=== PATIENT | female | born 1955 | race Caucasian/White ===

== ENCOUNTER → 2016-09-30 | Outpatient (CLI) | payer MEDICAID | LOC: FIMAGING 19:08 | PROVIDERS: ATTEND Family Medicine | DX: R10.30 Lower abdominal pain, unspecified (principal); R19.7 Diarrhea, unspecified; R53.83 Other fatigue; R53.1 Weakness; R93.3 Abnormal findings on diagnostic imaging of other parts of digestive tract; M53.3 Sacrococcygeal disorders, not elsewhere classified ==

== ENCOUNTER 2017-01-28 17:11 | Emergency (ER) | payer MEDICAID ==
[2017-01-28 17:23] VITALS: TEMP 98.2
--- NOTE | 2017-01-28 17:29 | EDPHY ---
H & P Time Seen by Provider: 01/28/17 17:28 HPI/ROS: Chief complaint. Arm fracture HPI. I signed up for this patient but the patient was seen by 1 of my partners and not myself ROS Constitutional. [no fever/chills, no weakness] Eyes. [no problems with vision] ENT. [no sore throat, no nasal drainage] Cardiovascular. [no chest pain] Respiratory. [no shortness of breath, no cough] Abdominal. [no abdominal pain, no nausea/vomiting, no diarrhea] . [no problems urinating] MS. [no calf pain/swelling, no neck/back pain, no joint pain] Skin. [no rash] Lymph. [no swollen glands] Neuro. [no headache, no dizziness, no difficulty walking or with speech] Smoking Status: Former smoker Constitutional: Initial Vital Signs Temperature (C) 36.8 C 01/28/17 17:19 Heart Rate 70 01/28/17 17:19 Respiratory Rate 18 01/28/17 17:19 Blood Pressure 121/62 H 01/28/17 17:19 O2 Sat (%) 98 01/28/17 17:19 O2 Delivery Mode Room Air Allergies/Adverse Reactions: Penicillins Allergy (Mild, Verified 01/28/17 17:23) Rash Sulfa (Sulfonamide Antibiotics) Allergy (Mild, Verified 01/28/17 17:23) Rash Home Medications: Medication Instructions Recorded ARMOUR THYROID 18 Apixaban [Eliquis] 10 mg PO BID 7 Days 01/28/17 Hydrocodone/APAP 5/325 [[place] 1 tab PO Q6H #6 tab 01/28/17 5/325 (*)] Medical Decision Making - Diagnostics Imaging Results: Imaging Impressions Wrist X-Ray 01/28/17 17:33 Impression: Comminuted intra-articular fractures of the distal radius and ulna, with positional deformities. Extremity Venous Study 01/28/17 18:21 Impression: Limited amount of venous thrombus in left brachial vein. No answer at telephone extension for Manuel Boyd at 1951 hours. - Data Points Laboratory Results: Laboratory Results 01/28/17 21:00 01/28/17 21:00 01/28/17 01/28/17 01/28/17 21:42 21:00 21:00 WBC RBC Hgb Hct MCV MCH MCHC RDW Plt Count MPV Neut % (Auto) Lymph % (Auto) [place] % (Auto) Eos % (Auto) Baso % (Auto) Nucleat RBC Rel Count Absolute Neuts (auto) Absolute Lymphs (auto) Absolute Monos (auto) Absolute Eos (auto) Absolute Basos (auto) Absolute Nucleated RBC Immature Gran % Immature Gran # PT 14.0 SEC SEC TNP (12.0-15.0) INR 1.09 TNP (0.83-1.16) APTT 28.8 SEC SEC TNP (23.0-38.0) Sodium 134 mEq/L mEq/L (134-144) Potassium 3.3 mEq/L L mEq/L (3.5-5.2) Chloride 99 mEq/L mEq/L (97-110) Carbon Dioxide 24 mEq/l mEq/l (22-31) Anion Gap 11 mEq/L mEq/L (8-16) BUN 13 mg/dL mg/dL (7-23) Creatinine 0.6 mg/dL mg/dL (0.6-1.0) Estimated GFR > 60 Glucose 76 mg/dL mg/dL (70-100) Calcium 9.2 mg/dL mg/dL (8.5-10.4) 01/28/17 21:00 WBC 4.85 10^3/uL 10^3/uL (3.80-9.50) RBC 3.83 10^6/uL L 10^6/uL (4.18-5.33) Hgb 11.3 g/dL L g/dL (12.6-16.3) Hct 34.8 % L % (38.0-47.0) MCV 90.9 fL fL (81.5-99.8) MCH 29.5 pg pg (27.9-34.1) MCHC 32.5 g/dL g/dL (32.4-36.7) RDW 13.2 % % (11.5-15.2) Plt Count 286 10^3/uL 10^3/uL (150-400) MPV 10.2 fL fL (8.7-11.7) Neut % (Auto) 51.3 % % (39.3-74.2) Lymph % (Auto) 28.5 % % (15.0-45.0) [place] % (Auto) 16.1 % H % (4.5-13.0) Eos % (Auto) 3.1 % % (0.6-7.6) Baso % (Auto) 0.6 % % (0.3-1.7) Nucleat RBC Rel Count 0.0 % % (0.0-0.2) Absolute Neuts (auto) 2.49 10^3/uL 10^3/uL (1.70-6.50) Absolute Lymphs (auto) 1.38 10^3/uL 10^3/uL (1.00-3.00) Absolute Monos (auto) 0.78 10^3/uL 10^3/uL (0.30-0.80) Absolute Eos (auto) 0.15 10^3/uL 10^3/uL (0.03-0.40) Absolute Basos (auto) 0.03 10^3/uL 10^3/uL (0.02-0.10) Absolute Nucleated RBC 0.00 10^3/uL 10^3/uL (0-0.01) Immature Gran % 0.4 % % (0.0-1.1) Immature Gran # 0.02 10^3/uL 10^3/uL (0.00-0.10) PT INR APTT Sodium Potassium Chloride Carbon Dioxide Anion Gap BUN Creatinine Estimated GFR Glucose Calcium Medications Given: Discontinued Medications Apixaban (Eliquis) 10 mg PO EDNOW ONE Stop: 01/28/17 21:21 Last Admin: 01/28/17 22:10 Dose: 10 mg Diphtheria/Tetanus/Acell Pertussis (Boostrix) 0.5 ml IM .ONCE ONE Stop: 01/28/17 18:24 Last Admin: 01/28/17 18:34 Dose: 0.5 ml Oxycodone/Acetaminophen (Percocet 5/325) 1 tab PO EDNOW ONE Stop: 01/28/17 20:48 Last Admin: 01/28/17 20:55 Dose: 1 tab Departure - Departure Disposition: Home, Routine, Self-Care Clinical Impression: Wrist fracture, left, DVT of upper extremity (deep vein thrombosis) Condition: Good Instructions: Wrist Fracture in Adults (ED), Deep Venous Thrombosis (ED), Splint Care (ED) Additional Instructions: Follow-up with both Orthopedics and your primary care doctor this week for recheck Please talk to you orthopedic doctor or primary care doctor about continuing anticoagulants medication. It is very important to note that when you finish the prescription you were given here you are not finished with therapy, you will likely need to be on anticoagulants medication for a number of months. Your primary care doctor or orthopedic doctor can provide you with this prescription. In regards to pain control see the following: Use ibuprofen 400 mg 3 times a day for the next 2-3 days for pain In addition You have been prescribed [[place]] for pain. [[place]] contains Tylenol, do not take extra Tylenol/acetaminophen/Apap with it. It is sedating. If symptoms worsen or new symptoms develop return to the emergency room for recheck Referrals: Iggy Gross MD [Medical Doctor] - As per Instructions Melida Cavazos MD [Primary Care Provider] - As per Instructions Prescriptions: Apixaban [Eliquis] 10 mg PO BID 7 Days Hydrocodone/APAP 5/325 [[place] 5/325 (*)] 1 tab PO Q6H #6 tab
[2017-01-28] MEDS ORDERED: TDAP ADULT 0.5 ML INJ (BOOSTRIX) IM ONE (18:23)
[2017-01-28] MEDS ORDERED: OXYCODONE/APAP 5/325 TAB PO ONE (20:47)
[2017-01-28 21:12] LABS: % IMMATURE GRANULYOCYTES 0.4 % (0.0-1.1); ABSOLUTE IMMATURE GRANULOCYTES 0.02 10^3/uL (0.00-0.10); ADD DIFF? NO; ADD MORPH? NO; ADD SCAN? YES; ATYPICAL LYMPHOCYTE FLAG 0 (0-99); FRAGMENT RBC FLAG 0 (0-99); HEMATOCRIT 34.8 % (38.0-47.0); HEMOGLOBIN 11.3 g/dL (12.6-16.3); LIPEMIA HEMOLYSIS FLAG 80 (0-99); MEAN CELL HEMOGLOBIN 29.5 pg (27.9-34.1); MEAN CELL HEMOGLOBIN CONCENTR. 32.5 g/dL (32.4-36.7); MEAN CELL VOLUME 90.9 fL (81.5-99.8); MEAN PLATELET VOLUME 10.2 fL (8.7-11.7); PLATELET CLUMPS FLAG 10 (0-99); PLATELET COUNT 286 10^3/uL (150-400); RED BLOOD CELL COUNT 3.83 10^6/uL (4.18-5.33); RED CELL DISTRIBUTION WIDTH 13.2 % (11.5-15.2)
--- NOTE | 2017-01-28 21:19 | EDPHY ---
H & P Stated Complaint: Fx L wrist/forearm last week;casted in [place];inc swelling Time Seen by Provider: 01/28/17 17:28 HPI/ROS: Chief complaint: Left wrist fracture, pain and swelling in the left arm History of present illness: This is a 61-year-old female who presents to the emergency department for a known left wrist fracture, now with pain and swelling in the left arm. Patient was in the [place] 4 days agowhen she fell while playing volleyball and struck her left arm against the ground. She sustained an injury to the wrist at that time. There was significant deformity and pain. She went to a local hospital where x-rays were obtained showing a fracture. Apparently she was reduced at the hospital in a full cast was placed on the arm. Since the placement of the cast he has been having increasing pain in the arm. She is now starting to develop her hand swelling and changing colors. She denies other associated signs or symptoms at this time including no report of trauma to other parts of the body. Review of systems: A 10 point review of systems was obtained and other than described above was negative - Personal History Current Tetanus Diphtheria and Acellular Pertussis (TDAP): Unsure Tetanus Vaccine Date: UNSURE - Medical/Surgical History Hx Asthma: No Hx Chronic Respiratory Disease: No Hx Diabetes: No Hx Cardiac Disease: No Hx Renal Disease: No Hx Cirrhosis: No Hx Alcoholism: No Hx HIV/AIDS: No Hx Splenectomy or Spleen Trauma: No Other PMH: Ankylosing spondylitis, microscopic colitis - Social History Smoking Status: Former smoker - Physical Exam Exam: General Appearance: Alert, nontoxic Eyes: Pupils equal and round no injection. Respiratory: Chest is nontender, lungs are clear to auscultation. Cardiac: regular rate and rhythm. Musculoskeletal: Patient's left upper extremity is in a poorly fitting cast. After the cast was cut off there is no obvious deformities noted. Given known fractures the arm is not ranged. Muscle compartments appear soft. Skin: Delayed capillary refill in left hand while cast is on. Normal capillary refill in the left hand after cast is removed. Radial pulses 2+. Multiple blisters that are intact noted to the left forearm. Constitutional: Initial Vital Signs Temperature (C) 36.8 C 01/28/17 17:19 Heart Rate 70 01/28/17 17:19 Respiratory Rate 18 01/28/17 17:19 Blood Pressure 121/62 H 01/28/17 17:19 O2 Sat (%) 98 01/28/17 17:19 O2 Delivery Mode Room Air Allergies/Adverse Reactions: Penicillins Allergy (Mild, Verified 01/28/17 17:23) Rash Sulfa (Sulfonamide Antibiotics) Allergy (Mild, Verified 01/28/17 17:23) Rash Home Medications: Medication Instructions Recorded ARMOUR THYROID 01/07/11 Apixaban [Eliquis] 10 mg PO BID 7 Days 01/28/17 Hydrocodone/APAP 5/325 [[place] 1 tab PO Q6H #6 tab 01/28/17 5/325 (*)] oxyCODONE/APAP 5/325 [Percocet 1 tab PO Q6H #10 tab 01/28/17 5/325 (*)] Medical Decision Making - Diagnostics Imaging Results: Imaging Impressions Wrist X-Ray 01/28/17 17:33 Impression: Comminuted intra-articular fractures of the distal radius and ulna, with positional deformities. Extremity Venous Study 01/28/17 18:21 Impression: Limited amount of venous thrombus in left brachial vein. No answer at telephone extension for Manuel Boyd at 1951 hours. Imaging: Discussed imaging studies w/ on call pharmacy technician Radiologist, I viewed and interpreted images myself Procedures: Procedure: Splint placement. A volar splint was applied. After application of the splint I returned and re- examined the patient. The splint was adequately immobilizing the joint and distal to the splint the patient's circulation and sensation was intact. ED Course/Re-evaluation: The patient is discussed with my secondary supervising physician Dr. Jake Jeong. Patient presents to the emergency department for evaluation of a left wrist fracture that was reduced and casted while she was in the [facility] 4 days ago. The cast appears to be too tight on presentation here and she has delayed capillary refill. After the cast is removed her left upper extremity is neurovascularly intact. Repeat x-rays do reveal significant fractures in the wrist. I have discussed the case with on- call orthopedics, Dr. Iggy Gross in person who has reviewed the x-rays. He recommends a volar splint. Further an ultrasound is recommended to rule out DVT which is obtained and does reveal a small DVT. Patient is started on Eliquis for her clot. Patient will be discharged home. She is asked to follow up with orthopedics this week for continued evaluation and care. We have discussed home care and pain management at length. Further she understands that after she completes the 7 day course of Eliquis I have provided she will need a new prescription for a maintenance dose and the length of time will be determined by her doctor or Orthopedics. She understands she should not miss a dose of anticoagulants while getting this prescription. She is given strict return precautions. She has voiced understanding and agreement with plan. Differential Diagnosis: Included but not limited to fracture, dislocation, compartment syndrome, blood clot - Data Points Laboratory Results: Laboratory Results 01/28/17 21:00 01/28/17 21:00 01/28/17 01/28/17 01/28/17 21:42 21:00 21:00 WBC RBC Hgb Hct MCV MCH MCHC RDW Plt Count MPV Neut % (Auto) Lymph % (Auto) [place] % (Auto) Eos % (Auto) Baso % (Auto) Nucleat RBC Rel Count Absolute Neuts (auto) Absolute Lymphs (auto) Absolute Monos (auto) Absolute Eos (auto) Absolute Basos (auto) Absolute Nucleated RBC Immature Gran % Immature Gran # PT 14.0 SEC SEC TNP (12.0-15.0) INR 1.09 TNP (0.83-1.16) APTT 28.8 SEC SEC TNP (23.0-38.0) Sodium 134 mEq/L mEq/L (134-144) Potassium 3.3 mEq/L L mEq/L (3.5-5.2) Chloride 99 mEq/L mEq/L (97-110) Carbon Dioxide 24 mEq/l mEq/l (22-31) Anion Gap 11 mEq/L mEq/L (8-16) BUN 13 mg/dL mg/dL (7-23) Creatinine 0.6 mg/dL mg/dL (0.6-1.0) Estimated GFR > 60 Glucose 76 mg/dL mg/dL (70-100) Calcium 9.2 mg/dL mg/dL (8.5-10.4) 01/28/17 21:00 WBC 4.85 10^3/uL 10^3/uL (3.80-9.50) RBC 3.83 10^6/uL L 10^6/uL (4.18-5.33) Hgb 11.3 g/dL L g/dL (12.6-16.3) Hct 34.8 % L % (38.0-47.0) MCV 90.9 fL fL (81.5-99.8) MCH 29.5 pg pg (27.9-34.1) MCHC 32.5 g/dL g/dL (32.4-36.7) RDW 13.2 % % (11.5-15.2) Plt Count 286 10^3/uL 10^3/uL (150-400) MPV 10.2 fL fL (8.7-11.7) Neut % (Auto) 51.3 % % (39.3-74.2) Lymph % (Auto) 28.5 % % (15.0-45.0) [place] % (Auto) 16.1 % H % (4.5-13.0) Eos % (Auto) 3.1 % % (0.6-7.6) Baso % (Auto) 0.6 % % (0.3-1.7) Nucleat RBC Rel Count 0.0 % % (0.0-0.2) Absolute Neuts (auto) 2.49 10^3/uL 10^3/uL (1.70-6.50) Absolute Lymphs (auto) 1.38 10^3/uL 10^3/uL (1.00-3.00) Absolute Monos (auto) 0.78 10^3/uL 10^3/uL (0.30-0.80) Absolute Eos (auto) 0.15 10^3/uL 10^3/uL (0.03-0.40) Absolute Basos (auto) 0.03 10^3/uL 10^3/uL (0.02-0.10) Absolute Nucleated RBC 0.00 10^3/uL 10^3/uL (0-0.01) Immature Gran % 0.4 % % (0.0-1.1) Immature Gran # 0.02 10^3/uL 10^3/uL (0.00-0.10) PT INR APTT Sodium Potassium Chloride Carbon Dioxide Anion Gap BUN Creatinine Estimated GFR Glucose Calcium Medications Given: Discontinued Medications Apixaban (Eliquis) 10 mg PO EDNOW ONE Stop: 01/28/17 21:21 Last Admin: 01/28/17 22:10 Dose: 10 mg Diphtheria/Tetanus/Acell Pertussis (Boostrix) 0.5 ml IM .ONCE ONE Stop: 01/28/17 18:24 Last Admin: 01/28/17 18:34 Dose: 0.5 ml Ibuprofen (Motrin) 600 mg PO EDNOW ONE Stop: 01/28/17 23:06 Last Admin: 01/28/17 23:08 Dose: 600 mg Oxycodone/Acetaminophen (Percocet 5/325) 1 tab PO EDNOW ONE Stop: 01/28/17 20:48 Last Admin: 01/28/17 20:55 Dose: 1 tab Oxycodone/Acetaminophen (Percocet 5/325mg Prepack#4) 1 btl TAKEHOME EDNOW ONE Stop: 01/28/17 22:38 Last Admin: 01/28/17 23:05 Dose: 1 btl Oxycodone/Acetaminophen (Percocet 5/325mg Prepack#4) 1 btl TAKEHOME EDNOW ONE Stop: 01/28/17 23:19 Last Admin: 01/28/17 23:23 Dose: 1 btl Departure - Departure Disposition: Home, Routine, Self-Care Clinical Impression: Wrist fracture, left Qualifiers: Encounter type: initial encounter Fracture type: closed Qualified Code(s): S62.102A - Fracture of unspecified carpal bone, left wrist, initial encounter for closed fracture DVT of upper extremity (deep vein thrombosis) Qualifiers: Affected thrombotic vein of extremity: brachial Chronicity: acute Laterality: left Qualified Code(s): I82.622 - Acute embolism and thrombosis of deep veins of left upper extremity Condition: Good Instructions: Wrist Fracture in Adults (ED), Deep Venous Thrombosis (ED), Splint Care (ED) Additional Instructions: Follow-up with both Orthopedics and your primary care doctor this week for recheck Please talk to you orthopedic doctor or primary care doctor about continuing anticoagulants medication. It is very important to note that when you finish the prescription you were given here you are not finished with therapy, you will likely need to be on anticoagulants medication for a number of months. Your primary care doctor or orthopedic doctor can provide you with this prescription. In regards to pain control see the following: Use ibuprofen 400 mg 3 times a day for the next 2-3 days for pain In addition You have been prescribed percocet for pain. Percocet contains Tylenol, do not take extra Tylenol/acetaminophen/Apap with it. It is sedating. If symptoms worsen or new symptoms develop return to the emergency room for recheck Referrals: Melida Cavazos MD [Primary Care Provider] - As per Instructions Iggy Gross MD [Medical Doctor] - As per Instructions Prescriptions: Apixaban [Eliquis] 10 mg PO BID 7 Days Hydrocodone/APAP 5/325 [[place] 5/325 (*)] 1 tab PO Q6H #6 tab oxyCODONE/APAP 5/325 [Percocet 5/325 (*)] 1 tab PO Q6H #10 tab
[2017-01-28] MEDS ORDERED: APIXABAN 5 MG TAB PO ONE (21:20)
[2017-01-28 21:21] LABS: LEFT SHIFT FLG 160 (0-99)
[2017-01-28 21:24] LABS: ANION GAP 11 mEq/L (8-16); CALCIUM 9.2 mg/dL (8.5-10.4); CARBON DIOXIDE 24 mEq/l (22-31); CHLORIDE 99 mEq/L (97-110); CREATININE 0.6 mg/dL (0.6-1.0); GLOMERULAR FILTRATION RATE > 60; GLUCOSE 76 mg/dL (70-100); POTASSIUM 3.3 mEq/L (3.5-5.2); SODIUM 134 mEq/L (134-144)
[2017-01-28 22:07] LABS: SCAN NEGATIVE
[2017-01-28 22:13] LABS: INR 1.09 (0.83-1.16)
[2017-01-28 22:14] LABS: APTT 28.8 SEC (23.0-38.0)
[2017-01-28] MEDS ORDERED: HYDROCOD/APAP 5/325 PREPACK#6 BTL TAKEHOME ONE (22:21)
[2017-01-28] MEDS ORDERED: OXYCODONE/APAP 5/325MG PREPACK#4 BTL TAKEHOME ONE ×2 (22:37→23:18)
[2017-01-28] MEDS ORDERED: IBUPROFEN 600 MG TAB PO ONE (23:05)
[2017-01-28 23:14] VITALS: BP 118/68; PULSE 78; RESP 16; O2SAT 95
== END 2017-01-28 23:14 | disposition home or self-care (01) ==
DX: S52.602A Unspecified fracture of lower end of left ulna, initial encounter for closed fracture (principal); I82.622 Acute embolism and thrombosis of deep veins of left upper extremity; S52.572A Other intraarticular fracture of lower end of left radius, initial encounter for closed fracture; Z23 Encounter for immunization; Z87.891 Personal history of nicotine dependence; W18.00XA Striking against unspecified object with subsequent fall, initial encounter; Y92.89 Other specified places as the place of occurrence of the external cause; Y93.68 Activity, volleyball (beach) (court)
CPT/HCPCS: A4565

== ENCOUNTER 2017-01-31 00:31 | Emergency (ER) | payer MEDICAID ==
[2017-01-31 00:39] VITALS: BP 128/66; PULSE 65; RESP 20; TEMP 97.5; O2SAT 18
--- NOTE | 2017-01-31 01:11 | EDPHY ---
H & P Stated Complaint: PAIN SWELING LEFT FX HAND,INCREAS LAST 30MIN, SURG TOMORROW, BLOOD CLOT ARM Time Seen by Provider: 01/31/17 00:40 HPI/ROS: Chief Complaint: Left arm pain and swelling HPI: 61-year-old woman who is presenting with left arm pain and swelling. Patient sustained a fracture to [place] Patient was seen here 3 days ago and diagnosed with a partial thrombus in her left brachial vein. She was started on Eliquis at that time. Patient was seen by Dr. Gross, orthopedics yesterday. She is scheduled for surgical repair later today. Dr. Gross did place a new splint on her left wrist. Patient states that she has had increasing pain and swelling in her wrist and hand. Has not had any increasing swelling of her proximal arm. She last took Eliquis yesterday morning in preparation for surgery today. No chest pain or shortness of breath. No palpitations. She did take Percocet earlier with no significant relief of her pain. ROS: 10 point Review of Systems is negative except as noted in the HPI. PMH: Social History: No smoking, no alcohol, no recreational drug use Family History: non-contributory Physical Exam: Gen: Awake, Alert, No Distress Ext: She has moderate edema of her hand with very mild forearm edema. There are is a blister of her radial wrist with an abrasion on her ulnar wrist. Forearm is completely soft. Sensations intact in the radial, median, and ulnar nerve distribution. She has no significant swelling proximal to her elbow. She has 2+ radial ulnar pulses. Capillary refills less than 2 seconds Skin: no rash Neuro: CN II-XII intact, Sensation grossly intact, Strength 5/5 in bilateral upper and lower extremities - Personal History Current Tetanus/Diphtheria Vaccine: Yes Tetanus Vaccine Date: 2016 - Medical/Surgical History Hx Asthma: No Hx Chronic Respiratory Disease: No Hx Diabetes: Yes Hx Cardiac Disease: No Hx Renal Disease: No Hx Cirrhosis: No Hx Alcoholism: No Hx HIV/AIDS: No Hx Splenectomy or Spleen Trauma: No Other PMH: Ankylosing spondylitis, microscopic colitis, FX LEFT HAND, BLOOD CLOT LEFT ARM - Social History Smoking Status: Former smoker Constitutional: Initial Vital Signs Temperature (C) 36.4 C 01/31/17 00:32 Heart Rate 65 01/31/17 00:32 Respiratory Rate 20 08/11/17 00:32 Blood Pressure 128/66 H 01/31/17 00:32 O2 Sat (%) 18 L 01/31/17 00:32 O2 Delivery Mode Room Air Allergies/Adverse Reactions: Penicillins Allergy (Mild, Verified 01/31/17 00:45) Rash Sulfa (Sulfonamide Antibiotics) Allergy (Mild, Verified 01/31/17 00:45) Rash Home Medications: Medication Instructions Recorded ARMOUR THYROID 01/07/11 Apixaban [Eliquis] 10 mg PO BID 7 Days 01/28/17 oxyCODONE/APAP 5/325 [Percocet 1 tab PO Q6H #10 tab 01/28/17 5/325 (*)] Acyclovir 01/30/17 Gabapentin 01/30/17 Herbals/Supplements -Info Only 01/30/17 Medical Decision Making ED Course/Re-evaluation: Patient presenting with wrist pain and hand swelling. She is completely neurologically intact. She has completely soft and benign compartments and no findings to suggest acute compartment syndrome. I have discussed with Dr. Charmaine Conroy, orthopedics. He agrees with plan to keep the patient splint, ice and elevate. Discharge with plan for follow-up with surgical repair with Dr. Gross later today. I have offered to keep the patient in the hospital for analgesia but she would prefer to go home and sleep in her own bed and return tomorrow for her surgical repair. I think this is appropriate. I have told her that she can return to the emergency department any time for pain is not controlled. Departure - Departure Disposition: Home, Routine, Self-Care Clinical Impression: Wrist fracture, left, DVT of upper extremity (deep vein thrombosis) Condition: Good Instructions: Wrist Fracture in Adults (ED) Additional Instructions: Follow up with Dr. Gross today for your wrist surgery. Return to the emergency department for worsening pain that is not controlled at home. Continue applying ice to her wrist and keep your wrist elevated above the level of your heart. Referrals: Iggy Gross MD [Medical Doctor] - As per Instructions
== END 2017-01-31 01:30 | disposition home or self-care (01) ==
DX: S62.102D Fracture of unspecified carpal bone, left wrist, subsequent encounter for fracture with routine healing (principal); I82.622 Acute embolism and thrombosis of deep veins of left upper extremity; E11.9 Type 2 diabetes mellitus without complications; Z87.891 Personal history of nicotine dependence; X58.XXXD Exposure to other specified factors, subsequent encounter

== ENCOUNTER 2017-01-31 13:18 | Inpatient (IN) | payer MEDICAID ==
[2017-01-31] MEDS ORDERED: BUPIVACAINE/EPI 0.5% 30 ML SDV ONE (13:28)
[2017-01-31] MEDS ORDERED: CLINDAMYCIN 900 MG/DEXTROSE 50 ML IV ONE (13:30)
[2017-01-31] MEDS ORDERED: LR 1,000 ML IV ONE (13:34)
[2017-01-31] MEDS ORDERED: LIDOCAINE 1% 2 ML INJ ID PRN (13:34)
[2017-01-31] MEDS ORDERED: LIDOCAINE 1% 2 ML INJ ONE (13:42)
--- NOTE | 2017-01-31 13:51 | GHP ---
[f rep st] PREOP HISTORY AND PHYSICAL Corrected report REASON FOR ADMISSION: 1. Displaced distal radius fracture, left. 2. Acute carpal tunnel syndrome, left. PLANNED PROCEDURE: Open reduction, internal fixation distal radius with acute carpal tunnel release. HISTORY OF PRESENT ILLNESS: The patient is a 61-year-old female, who was visiting the [facility], had a fall, sustained a displaced distal radius fracture. This was closed reduced and casted there. She returned on a flight. Cast was apparently too tight and she presented to the emergency room earlier this week. The cast was removed and she was found to have both blisters as well as a skin breakdown. She was placed in a splint. I evaluated her in the office and decision made to proceed with an open reduction, internal fixation of her distal radius and a carpal tunnel release. PAST MEDICAL HISTORY: Hypothyroidism and a DVT in the upper extremity, and she was started on Eliquis. This DVT was in the brachial vein. MEDICATIONS: [place] thyroid, Eliquis, hydrocodone. ALLERGIES: Penicillin gives a rash. Sulfa antibiotics also give a rash. SOCIAL HISTORY: Occasional alcohol. Does not smoke. REVIEW OF SYSTEMS: No shortness of breath or chest pain. Otherwise, review of systems unremarkable. PHYSICAL EXAM: HEENT: Normocephalic, atraumatic. Extraocular muscles intact. NECK: Supple. There is no lymphadenopathy. No JVD. CHEST: Clear to auscultation. CARDIOVASCULAR: Regular rate and rhythm. ABDOMEN: Soft, nontender, nondistended. No hepatosplenomegaly. EXTREMITY: Splint is removed. She has had skin breakdown on the right dorsum side of the radius and multiple fracture blisters on the ulnar side. She has quite a bit of swelling, decreased sensation in the ulnar nerve. She does have movement in those fingers. X-rays are reviewed, 4 views from [facility] show a comminuted, intra-articular distal radius fracture. ASSESSMENT: Comminuted distal radius fracture with cast application too tight with acute carpal tunnel syndrome. PLAN: We will proceed with an open carpal tunnel release, open reduction, internal fixation. Risks and benefits were discussed with the patient including permanent sensory changes due to the carpal tunnel injury, possible need for hardware removal in the future. She will need treatment for the DVT. We talked to the primary care clinic. We are going to have admitted her overnight. While in the hospital, we will get her started on Coumadin, decide if they want to bridge her with Lovenox and surgery will be at [facility] on Friday. /[id number]/MODL Add acc#, 01/31/17, santy SINGH
[2017-01-31] MEDS ORDERED: fentaNYL 100 MCG/2 ML INJ IVP ONE (13:53)
--- NOTE | 2017-01-31 13:53 | PDANEPAE ---
ANE History of Present Illness right wrist frx ANE Past Medical History - Cardiovascular History Hx Hypertension: No Hx Arrhythmias: No Hx Chest Pain: No Hx Coronary Artery / Peripheral Vascular Disease: No Hx CHF / Valvular Disease: No Hx Palpitations: No - Pulmonary History Hx COPD: No Hx Asthma/Reactive Airway Disease: No Hx Recent Upper Respiratory Infection: No Hx Oxygen in Use at Home: No Hx Sleep Apnea: No Sleep Apnea Screening Result - Last Documented: Negative - Neurologic History Hx Cerebrovascular Accident: No Hx Seizures: Yes Hx Dementia: No Neurologic History Comment: SEIZURES X3 - LAST SEIZURE 5 YEARS AGO - Endocrine History Hx Diabetes: Yes Endocrine History Comment: HYPOTHYROIDISM - Renal History Hx Renal Disorders: No - Liver History Hx Hepatic Disorders: No - Neurological & Psychiatric Hx Hx Neurological and Psychiatric Disorders: Yes Neurological / Psychiatric History Comment: ankylosing spondylitis causes hip and joint pain - Cancer History Hx Cancer: No - Congenital Disorder History Hx Congenital Disorders: No - GI History Hx Gastrointestinal Disorders: Yes Gastrointestinal History Comment: MICROCOLITIS - Other Health History Other Health History: L femoral hernia - Chronic Pain History Chronic Pain: Yes (JOINT PAIN) - Surgical History Prior Surgeries: bilat cataract surgery. BONE BIOPSY. JAW SURGERY. COLONOSCOPY. EGD ANE Review of Systems Review of systems is: negative - Exercise capacity Exercise capacity: >=4 METS METS (RN): 5 METS ANE Patient History - Allergies Allergies/Adverse Reactions: Penicillins Allergy (Mild, Verified 01/31/17 00:45) Rash Sulfa (Sulfonamide Antibiotics) Allergy (Mild, Verified 01/31/17 00:45) Rash - Home Medications Home Medications: ARMOUR THYROID 01/07/11 [Last Taken Unknown] Acyclovir 01/30/17 [Last Taken Unknown] Gabapentin 01/30/17 [Last Taken Unknown] Herbals/Supplements -Info Only 01/30/17 [Last Taken Unknown] - NPO status NPO Status: no food or drink >8 hours - Anes Hx Anes Hx: no prior problems - Smoking Hx Smoking Status: Former smoker - Alcohol Use Alcohol Use: None - Family Anes Hx Family Anes Hx: none Family Hx Anesthesia Complications: NONE ANE Labs/Vital Signs - Vital Signs Height: 158.75 cm Weight: 45.359 kg ANE Physical Exam - Airway Mallampati Score: Class 2 Mouth exam: normal dental/mouth exam - Pulmonary Pulmonary: no respiratory distress - Cardiovascular Cardiovascular: regular rate and rhythym - ASA Status ASA Status: III ANE Anesthesia Plan Anesthesia Plan: GA w LMA
[2017-01-31] MEDS ORDERED: MIDAZOLAM 2 MG/2 ML VIAL IVP ONE (13:54)
[2017-01-31] MEDS ORDERED: MIDAZOLAM 2 MG/2 ML VIAL ONE (13:56)
[2017-01-31] MEDS ORDERED: fentaNYL 100 MCG/2 ML INJ ONE ×3 (13:56→16:04)
--- NOTE | 2017-01-31 14:03 | PDHPUP ---
History & Physical Update H&P update statement: This history and physical update is based on an assessment of the patient which was completed after admission or registration (within 24 hours), but prior to the surgery/procedure.
[2017-01-31] MEDS ORDERED: PROPOFOL 200 MG/20 ML VIAL ONE (14:07)
[2017-01-31] MEDS ORDERED: LIDOCAINE 2% 5 ML SDV ONE (14:07)
[2017-01-31] MEDS ORDERED: DEXAMETHASONE 4 MG/ML VIAL ONE (14:30)
[2017-01-31] MEDS ORDERED: KETOROLAC 30 MG/1 ML SDV ONE ×2 (14:30→15:27)
[2017-01-31] MEDS ORDERED: ONDANSETRON 4 MG/2 ML VIAL ONE ×2 (14:30→15:27)
[2017-01-31] MEDS ORDERED: BUPIVACAINE 0.5% 30 ML SDV ONE (14:41)
[2017-01-31] MEDS ORDERED: HYDROmorphONE/DILAUDID 1 MG/ML SYR IVP PRN (15:31)
[2017-01-31] MEDS ORDERED: PROMETHAZINE HCL 25 MG/ML INJ IVP PRN (15:31)
[2017-01-31] MEDS ORDERED: ALBUTEROL 3 ML DEYVIAL IH PRN (15:31)
[2017-01-31] MEDS ORDERED: ONDANSETRON 4 MG/2 ML VIAL IVP PRN (15:31)
[2017-01-31] MEDS ORDERED: fentaNYL 100 MCG/2 ML INJ IVP PRN (15:31)
[2017-01-31] MEDS ORDERED: OXYCODONE/APAP 5/325 TAB PO PRN (15:31)
[2017-01-31] MEDS ORDERED: MEPERIDINE 25 MG/ML SYR IVP PRN (15:31)
[2017-01-31] MEDS ORDERED: NALOXONE HCL 0.4 MG/ML INJ IVP PRN (15:31)
[2017-01-31] MEDS ORDERED: LACTULOSE 20 GM/30 ML UDCUP PO PRN (16:01)
[2017-01-31] MEDS ORDERED: BISACODYL 10 MG SUPP PR PRN (16:01)
[2017-01-31] MEDS ORDERED: POLYETHYLENE GLYCOL 3350 17 GM PKT PO PRN (16:01)
[2017-01-31] MEDS ORDERED: MAGNESIUM HYDROXIDE 30 ML UDCUP PO PRN (16:01)
--- NOTE | 2017-01-31 16:01 | POSTOPPROG ---
Post Op Note Date of Operation: 01/31/17 Surgeon: Iggy Gross Anesthesiologist: josias Anesthesia: GET(General Endotracheal) Pre-op Diagnosis: Displaced intraarticular distal radius fracture, acute carpal tunnel left, Post-op Diagnosis: same Procedure: ORIF Left distal radius fracture, carpal tunnel release, PCP ulna Findings: displaced radius fx, hematoma in carpal tunnel Inf/Abcess present in the surg proc area at time of surgery?: No Complications: none
[2017-01-31] MEDS ORDERED: oxyCODONE IR 5 MG TAB PO PRN (16:02)
[2017-01-31] MEDS ORDERED: TEMAZEPAM 15 MG CAP PO PRN (16:02)
[2017-01-31] MEDS: fentaNYL 100 MCG/2 ML INJ IVP PRN ×2 (16:07→16:15)
[2017-01-31] MEDS ORDERED: LR 1,000 ML IV SCH (16:30)
[2017-01-31] MEDS ORDERED: HYDROmorphONE/DILAUDID 1 MG/ML SYR ONE ×2 (16:30→16:49)
[2017-01-31] MEDS: HYDROmorphONE/DILAUDID 1 MG/ML SYR IVP PRN ×5 (16:31→20:49)
[2017-01-31] MEDS ORDERED: oxyCODONE IR 5 MG TAB ONE (17:10)
--- NOTE | 2017-01-31 18:30 | POSTANESTH ---
Post Anesthetic Evaluation Cardiovascular Status: Normal, Stable Respiratory Status: Normal, Stable Level of Consciousness/Mental Status: Can Participate in Eval Pain Control: Adequate, Prn Tx Ordered Nausea/Vomiting Control: Adequate, Prn Tx Ordered Complications Possibly Related to Anesthesia: None Noted
--- NOTE | 2017-01-31 19:47 | GOP ---
[f rep st] OPERATIVE REPORT DATE OF OPERATION: 01/31/2017 SURGEON: Iggy Gross MD ANESTHESIA: General. ANESTHESIOLOGIST: Dr. Nicole. PREOPERATIVE DIAGNOSIS: 1. Displaced intra-articular distal radius fracture. 2. Displaced ulnar fracture. 3. Acute carpal tunnel syndrome. 4. Brachial vein deep vein thrombosis. POSTOPERATIVE DIAGNOSIS: 1. Displaced intra-articular distal radius fracture. 2. Displaced ulnar fracture. 3. Acute carpal tunnel syndrome. 4. Brachial vein deep vein thrombosis. PROCEDURE PERFORMED: 1. Open reduction and internal fixation, intra-articular distal radius fracture. 2. Closed reduction, percutaneous pinning, distal ulnar fracture. 3. Carpal tunnel release. FINDINGS: INDICATIONS: The patient is a 61-year-old female, who fell while she was visiting the [facility] and underwent a closed reduction and casting there. She flew back on the plane. Cast was too tight and she presented to the emergency department. They removed the cast, which showed multiple fracture blisters and breakdown of her skin over the radial side of her wrist. She was re-splinted, evaluated by me in my office, and I decided to proceed with an open reduction and internal fixation of her fracture and a carpal tunnel release. DESCRIPTION OF PROCEDURE: After appropriate informed consent was obtained, the patient was taken to the operating room and placed supine on the operating table. Time-out was performed. Patient was identified. Correct site was identified and matched with the radiographs available in the room. Davina newell received 900 mg clindamycin due to her penicillin allergy. Following induction of general endotra cheal anesthesia, left upper extremity was prepped and draped in the usual sterile fashion. I was a ble to exsanguinate the limb, inflate the tourniquet to 250 mmHg. I made a standard volar incision centered over the flexor carpi radialis tendon, being careful to av oid the areas of skin that were blistered or were broken down. Soft tissues were carefully dissecte d. The muscle was elevated off the bone. Median nerve was protected toward the ulnar side of the w rist, and the radial artery was retracted and protected toward the radial side of the wrist. The fr acture was in multiple pieces. It was pieced together. Held in place with K-wires and a volar plat e. I confirmed its position with AP and lateral fluoroscopic images, then placed 1 shaft screw foll owed by multiple distal locking screws and 2 more locking shaft screws. Final imaging was obtained, which showed satisfactory reduction of the fracture. I then extended the incision in a Z-type fashion into the and up over the carpal tunnel. Carpal lig ament was incised. The median nerve had a large hematoma right at the wrist crease where the cast h er wrist flexed down. I irrigated the hematoma out. The nerve was in continuity, although there was a large bruise along its sheath. I irrigated the wound again. Closed the deep layers of the distal radial incision with 2-0 Vicryl. The skin over the carpal tunnel release was just closed loosely w ith 3-0 nylon and the remainder of the incision was closed with 3-0 nylon. I then placed two 1.8 mm K-wires under fluoroscopic visualization from the ulna into the radius stabilizing the fracture. P ins were bent and cut. We cleaned the blisters as well as the broken-down skin, covered it with a n onadherent dressing and a volar splint was loosely applied to the wrist. I instilled 20 mL of 0.5% Marcaine plain prior to the application of the splint. The patient was awakened from anesthesia, taken to the recovery room in satisfactory condition. The re were no immediate intraoperative complications. TOTAL TOURNIQUET TIME: 62 minutes at 250 mmHg. COMPLICATIONS: None. DRAINS: None. IMPLANTS USED: 1. Synthes volar plate. 2. Two smooth K-wires 1.8 mm. /[id number]/MODL
[2017-01-31] MEDS ORDERED: LORazepam 2 MG/ML INJ IVP ONE (20:25)
[2017-01-31] MEDS ORDERED: LORazepam 2 MG/ML INJ IVP PRN (20:25)
[2017-01-31] MEDS: oxyCODONE IR 5 MG TAB PO PRN (22:26)
[2017-01-31] MEDS: SENNOSIDES/DOCUSATE SODIUM TAB PO SCH (22:28)
--- NOTE | 2017-01-31 22:38 | GCON ---
[f rep st] CONSULTATION MEDICINE CONSULTATION DATE OF CONSULTATION: 01/31/2017 Medicine consultation at the request of Dr. Iggy Gross for medical evaluation and management of u pper extremity deep vein thrombosis. HISTORY: This is a 61-year-old female who suffered a fractured wrist while on vacation in the [facility]. Apparently, she was placed in a cast at that time with a plan to have followup here in the [place]. By the time she arrived here, there had been issues developing due to the nessa t being placed too tightly. She developed an acute carpal tunnel syndrome, and had significant frac ture associated blisters. At the time of my evaluation, the patient is seen in the postoperative pe riod. She underwent an ORIF for displaced distal radius fracture, and a closed reduction of a displ aced ulnar fracture, as well as a carpal tunnel release procedure. She notes that her hand, fingers , and arm are increasingly swollen and painful since surgery. She states she is quite concerned abo ut the condition of her hand and arm. She does not believe that she is having adequate pain control . She denies any other associated complaints such as chest pain, shortness of breath, nausea, vomit ing. PAST MEDICAL HISTORY: Ankylosing spondylitis, collagenous colitis, iron deficiency anemia, hypothyr oidism, recently diagnosed left upper extremity brachial vein DVT. PAST SURGICAL HISTORY: No significant history. FAMILY HISTORY: This was reviewed and noncontributory. SOCIAL HISTORY: The patient is a nonsmoker. She drinks alcohol occasionally. Denies drug use. REVIEW OF SYSTEMS: A 10-point review of systems obtained, negative except as per HPI. MEDICATIONS: 1. Percocet. 2. [place] Thyroid. 3. Multivitamin. 4. Eliquis. ALLERGIES: Penicillin and sulfa. PHYSICAL EXAMINATION: VITAL SIGNS: BP 125/75, heart rate 64, respiratory rate 16, O2 saturation 98 % on 2 L, temperature 37.2. GENERAL APPEARANCE: Well-developed/well-nourished female. She is in m oderate distress. EYES: Anicteric. HENT: Oropharynx clear. CARDIOVASCULAR: Regular rate and rh ythm, no MRG. PULMONARY: CTA to anterior exam. ABDOMEN: Soft, nontender, nondistended. EXTREMIT IES: Left upper extremity is in a soft cast. Her fingers are noted to be edematous, warm with sign ificant tenderness to palpation and limited range of motion. Otherwise, warm, dry and well perfused . NEURO/PSYCH: Oriented, appropriate, pleasant. CLINICAL DATA: Labs reviewed. Significant for hematocrit of 34.8 on the 8th. Potassium was 3.3 on the 8th. There have not been labs repeated since then. Wrist x-ray from 01/28/2017 personally reviewed and interpreted shows comminuted fracture of the dis benito radius and ulna. Extremity ultrasound on the showing a limited amount of venous thrombus in the left brachial vei n. All other veins were patent and normally compressible. ASSESSMENT AND PLAN: This is a 61-year-old female with recent distal radius and ulnar fracture, as well as recently diagnosed brachial vein deep vein thrombosis. 1. Displaced distal radial and ulnar fractures. Again, the patient is status post open reduction i nternal fixation of the distal radius, and closed reduction and fixation of the ulnar fracture. At the time of my evaluation, she is concerned that she is having more pain and swelling then in the pr eoperative period. At this point, I will increase her pain medications, as she does not feel she is having any relief from the morphine, and switch her over to Dilaudid. I have also asked nursing to notify Orthopedics to be sure that they are aware. She does appear to be neurovascularly intact, a nd at this point I am suspecting that this is likely normal postoperative swelling. However, the tatum odom is quite anxious about this. 2. Brachial vein deep vein thrombosis. This is a very short segment DVT with very little amount of thrombus. Anticoagulation was held in the preoperative period, though she had been on Eliquis prio r to that. At this point, I will hold anticoagulation for tonight pending ortho re-evaluation just to be certain that there is nothing further surgically that needs to be done. We will resume Eliqui s in the morning. She should only require a very short course of treatment given the small amount o f clot in this situation. 3. Acute carpal tunnel syndrome. She is status post carpal tunnel release. Again, as above, she i s having significant swelling and pain, and unclear if this is related to the same. 4. Hypothyroid. We will continue her [place] Thyroid. DISPOSITION: Observation status. She will likely need less than 48 hours stay for evaluation and m anagement of above. The patient is new to my care. Old records reviewed, summarized as per HPI and past medical history. Care plan reviewed with Orthopedics. Medicine will continue to follow while in house. Thank you for this consultation. /[id number]/MODL
[2017-02-01] MEDS: oxyCODONE IR 5 MG TAB PO PRN ×6 (03:12→23:35)
[2017-02-01] MEDS: HYDROmorphONE/DILAUDID 1 MG/ML SYR IVP PRN ×6 (03:26→19:23)
[2017-02-01 05:07] LABS: % IMMATURE GRANULYOCYTES 0.4 % (0.0-1.1); ABSOLUTE IMMATURE GRANULOCYTES 0.03 10^3/uL (0.00-0.10); ADD DIFF? NO; ADD MORPH? NO; ADD SCAN? NO; ATYPICAL LYMPHOCYTE FLAG 60 (0-99); FRAGMENT RBC FLAG 0 (0-99); HEMATOCRIT 30.1 % (38.0-47.0); HEMOGLOBIN 9.9 g/dL (12.6-16.3); LEFT SHIFT FLG 40 (0-99); LIPEMIA HEMOLYSIS FLAG 80 (0-99); MEAN CELL HEMOGLOBIN 29.5 pg (27.9-34.1); MEAN CELL HEMOGLOBIN CONCENTR. 32.9 g/dL (32.4-36.7); MEAN CELL VOLUME 89.6 fL (81.5-99.8); MEAN PLATELET VOLUME 10.2 fL (8.7-11.7); PLATELET CLUMPS FLAG 0 (0-99); PLATELET COUNT 291 10^3/uL (150-400); RED BLOOD CELL COUNT 3.36 10^6/uL (4.18-5.33); RED CELL DISTRIBUTION WIDTH 13.1 % (11.5-15.2)
[2017-02-01 05:20] LABS: ANION GAP 9 mEq/L (8-16); CALCIUM 8.5 mg/dL (8.5-10.4); CARBON DIOXIDE 26 mEq/l (22-31); CHLORIDE 100 mEq/L (97-110); CREATININE 0.5 mg/dL (0.6-1.0); GLOMERULAR FILTRATION RATE > 60; GLUCOSE 81 mg/dL (70-100); POTASSIUM 3.6 mEq/L (3.5-5.2); SODIUM 135 mEq/L (134-144)
[2017-02-01] MEDS: ACETAMINOPHEN 325 MG TAB PO PRN (05:38)
[2017-02-01] MEDS: THYROID 60 MG TAB PO SCH (07:42)
--- NOTE | 2017-02-01 09:26 | SOAPPROG ---
SOAP Progress Note Assessment/Plan: Assessment: POD#1 ORIF radius/PCP ulna, CTR Plan: 02/01/17 09:23 poor pain control will add oxycontin 10 mg BID plus Ibuprofen will keep splint off for now Long d/w Candi numbness is to be expected due to median nerve injury and will likely persist for months cont ice/elation Appreciate DR Childers assistance with DVT treatment Subjective: poor pain control o/n splint and wrap removed o/n with some improvement numbness slightly better this am Objective: dressing with small amount blood FA compartment soft moving fingers decreased LT sensation in median nerve distribution Vital Signs Temp Pulse Resp BP Pulse Ox 36.5 C 67 16 123/72 H 97 02/01/17 07:28 02/01/17 07:28 02/01/17 07:28 02/01/17 07:28 02/01/17 07:28 Laboratory Results 02/01/17 04:47 02/01/17 04:47 01/31/17 02/01/17 02/02/17 05:59 05:59 05:59 Intake Total 1999 Output Total 1405 Balance 595 ICD10 Worksheet Patient Problems: Problems Problem Status Onset DVT of upper extremity (deep vein thrombosis) Acute Wrist fracture, left Acute
[2017-02-01] MEDS: SENNOSIDES/DOCUSATE SODIUM TAB PO SCH ×2 (09:59→19:27)
[2017-02-01] MEDS: APIXABAN 5 MG TAB PO SCH ×2 (09:59→19:27)
[2017-02-01] MEDS: IBUPROFEN 600 MG TAB PO PRN ×2 (10:02→15:48)
--- NOTE | 2017-02-01 15:32 | HOSPPROG ---
Hospitalist Progress Note Assessment/Plan: 61 yo F with recent radial and ulnar fracture as well as recent dx DVT and acute carpal tunnel syndrome # left radial and ulnar fracture: s/p surgical intervention per Dr. Gross, has been having significant issues with pain since surgery- started on oxycontin and continues to require prn oxycodone, prn IV dilaudid and notes that her pain still remains poorly controlled. Seems to have significant nerve component as next. # acute carpal tunnel syndrome: continues to have persistent numbness and burning pain in the past operative setting s/p carpal tunnel release--per ortho this is expected to continue likely for months. Started on gabapentin and will uptitrate as needed/tolerated. # LUE DVT: very small volume, has been on eliquis [employer] and will continue for 3 months # anxiety: prn ativan, likely contributing to her ability to manage her pain # hypothyroid: continue armour thyroid # IP status Subjective: no significant overnight events, patient notes that her pain is currently better controlled than it was yesterday, she still has numbness and burning pain and notes that intermittently her pain is severe Objective: Vital Signs Temp Pulse Resp BP Pulse Ox 36.4 C 63 14 114/71 95 02/01/17 11:46 02/01/17 11:46 02/01/17 11:46 02/01/17 11:46 02/01/17 11:46 Laboratory Results 02/01/17 04:47 02/01/17 04:47 01/31/17 02/01/17 02/02/17 05:59 05:59 05:59 Intake Total 2000 Output Total 1405 700 Balance 595 -700 awake alert nad anicteric op clear rrr no mrg cta b soft nt nd lue with dressing on, fingers edematous/erythematous improved rom warm dry well perfused anxious but oriented appropriate ICD10 Worksheet Patient Problems: Problems Problem Status Onset Wrist fracture, left Acute DVT of upper extremity (deep vein thrombosis) Acute
[2017-02-01] MEDS: GABAPENTIN 100 MG CAP PO SCH ×2 (15:48→23:29)
[2017-02-02] MEDS: oxyCODONE IR 5 MG TAB PO PRN (03:03)
[2017-02-02] MEDS: HYDROmorphONE/DILAUDID 1 MG/ML SYR IVP PRN ×2 (03:04→06:01)
[2017-02-02] MEDS: THYROID 60 MG TAB PO SCH (05:42)
[2017-02-02] MEDS: IBUPROFEN 600 MG TAB PO PRN ×3 (05:44→19:52)
--- NOTE | 2017-02-02 09:08 | SOAPPROG ---
JOHN Progress Note Assessment/Plan: Assessment: POD#1 ORIF radius/PCP ulna, CTR Plan: 02/01/17 09:23 poor pain control will add oxycontin 10 mg BID plus Ibuprofen will keep splint off for now Long d/w Candi numbness is to be expected due to median nerve injury and will likely persist for months cont ice/elation Appreciate DR Childers assistance with DVT treatment 02/02/17 09:06 Will D/C IV pain meds increase oxycodone IR to 5-15 q 3H Cont Ice/elevation Titrate gabapentin up as tolerated Poss DC Friday Subjective: Still with poor pain control but improved since yesterday Objective: Dressing intact moving fingers decreased sensation LT median nerve distribution Vital Signs Temp Pulse Resp BP Pulse Ox 36.4 C 76 16 137/70 H 91 L 02/02/17 07:53 02/02/17 07:53 02/02/17 07:53 02/02/17 07:53 02/02/17 07:53 Laboratory Results 02/01/17 04:47 02/01/17 04:47 02/01/17 02/02/17 02/03/17 05:59 05:59 05:59 Intake Total 1999 500 Output Total 1405 700 Balance 595 -200 ICD10 Worksheet Patient Problems: Problems Problem Status Onset DVT of upper extremity (deep vein thrombosis) Acute Wrist fracture, left Acute
[2017-02-02] MEDS: SENNOSIDES/DOCUSATE SODIUM TAB PO SCH ×2 (09:22→21:14)
[2017-02-02] MEDS: APIXABAN 5 MG TAB PO SCH ×2 (09:22→21:12)
[2017-02-02] MEDS: GABAPENTIN 100 MG CAP PO SCH ×3 (09:23→22:16)
[2017-02-02] MEDS: oxyCODONE IR 15 MG TAB PO PRN ×5 (10:21→22:58)
[2017-02-02] MEDS: ACETAMINOPHEN 325 MG TAB PO PRN (16:50)
[2017-02-03] MEDS: IBUPROFEN 600 MG TAB PO PRN ×2 (01:54→14:38)
[2017-02-03] MEDS: oxyCODONE IR 15 MG TAB PO PRN ×5 (01:55→14:38)
[2017-02-03] MEDS: THYROID 60 MG TAB PO SCH (03:42)
[2017-02-03] MEDS: GABAPENTIN 100 MG CAP PO SCH ×2 (08:19→17:03)
[2017-02-03] MEDS: APIXABAN 5 MG TAB PO SCH ×2 (08:19→18:15)
[2017-02-03] MEDS: SENNOSIDES/DOCUSATE SODIUM TAB PO SCH (08:21)
--- NOTE | 2017-02-03 09:20 | SOAPPROG ---
SOAP Progress Note Assessment/Plan: Assessment: POD#1 ORIF radius/PCP ulna, CTR Plan: 02/01/17 09:23 poor pain control will add oxycontin 10 mg BID plus Ibuprofen will keep splint off for now Long d/w Candi numbness is to be expected due to median nerve injury and will likely persist for months cont ice/elation Appreciate DR Childers assistance with DVT treatment 02/02/17 09:06 Will D/C IV pain meds increase oxycodone IR to 5-15 q 3H Cont Ice/elevation Titrate gabapentin up as tolerated Poss DC Friday02/03/17 09:18 Better pain control SNF placement OT consult for adl's self care F/U [place] Friday for dressing change PCP at [facility] for DVT treatment at [place] Subjective: Pain better controlled last 24 hours doesn't think she can manage at home Objective: dressing rewrapped and splinted this am moving fingers better less swelling Vital Signs Temp Pulse Resp BP Pulse Ox 36.9 C 70 18 106/61 94 02/03/17 08:00 02/03/17 08:00 02/03/17 08:00 02/03/17 08:00 02/03/17 08:00 Laboratory Results 02/01/17 04:47 02/01/17 04:47 02/02/17 02/03/17 02/04/17 05:59 05:59 05:59 Intake Total 500 2350 Output Total 700 1100 Balance -200 1250 ICD10 Worksheet Patient Problems: Problems Problem Status Onset DVT of upper extremity (deep vein thrombosis) Acute Wrist fracture, left Acute
--- NOTE | 2017-02-03 14:51 | HOSPPROG ---
Hospitalist Progress Note Assessment/Plan: 61 yo F with recent radial and ulnar fracture as well as recent dx DVT and acute carpal tunnel syndrome # left radial and ulnar fracture: s/p surgical intervention per Dr. Gross, has been having significant issues with pain since surgery- pain is out of proportion to what would be expected and patient very reluctant to go home. This injury is in her non dominant hand and she has not limitations in completing her ADLs. Declines snf placement. # acute carpal tunnel syndrome: continues to have persistent numbness and burning pain in the past operative setting s/p carpal tunnel release--per ortho this is expected to continue likely for months. Started on gabapentin and will uptitrate as needed/tolerated. # LUE DVT: very small volume, has been on eliquis [employer] and will continue for 3 months # anxiety: prn ativan, likely contributing to her ability to manage her pain # hypothyroid: continue armour thyroid # IP status, likely dc home today Subjective: patient very anxious and upset, does not want to leave the hospital for several more days, states that she "needs a break" and has been able to sleep here finally after having many rough weeks emotionally at home, she is walking/performing ADLs without issues Objective: Vital Signs Temp Pulse Resp BP Pulse Ox 36.9 C 70 18 106/61 94 02/03/17 08:00 02/03/17 08:00 02/03/17 08:00 02/03/17 08:00 02/03/17 08:00 Laboratory Results 02/01/17 04:47 02/01/17 04:47 02/02/17 02/03/17 02/04/17 05:59 05:59 05:59 Intake Total 500 2350 Output Total 700 1100 Balance -200 1250 anxious awake and alert anicteric lue in splint, continued mild edema to fingers, improved rom ICD10 Worksheet Patient Problems: Problems Problem Status Onset Wrist fracture, left Acute DVT of upper extremity (deep vein thrombosis) Acute
[2017-02-03] MEDS ORDERED: morphINE SR 15 MG TAB PO ONE (15:30)
[2017-02-03 16:02] VITALS: BP 109/69; PULSE 79; RESP 16; TEMP 98.6; O2SAT 90
== END 2017-02-03 18:24 | disposition home or self-care (01) | DRG 511 ==
LOC: F3N 13:18 → INTOOBSV 13:18 → EDSTATUS 14:30 → F3N 17:29 → OBSVTOIN 02-01 09:35 → F3N 02-01 16:55
PROVIDERS: ADMIT Orthopaedic Surgery; ATTEND Orthopaedic Surgery
PROC: 0PSL35Z Reposition Left Ulna with External Fixation Device, Percutaneous Approach (ICD-10-PCS; principal; 2017-01-31 14:30)
PROC: 01N50ZZ Release Median Nerve, Open Approach (ICD-10-PCS; principal; 2017-01-31 14:30)
PROC: 0PSJ04Z Reposition Left Radius with Internal Fixation Device, Open Approach (ICD-10-PCS; principal; 2017-01-31 14:30)
DX: S52.572A Other intraarticular fracture of lower end of left radius, initial encounter for closed fracture (principal); S52.602A Unspecified fracture of lower end of left ulna, initial encounter for closed fracture; S64.12XA Injury of median nerve at wrist and hand level of left arm, initial encounter; I82.622 Acute embolism and thrombosis of deep veins of left upper extremity; E03.9 Hypothyroidism, unspecified; M45.9 Ankylosing spondylitis of unspecified sites in spine; D50.9 Iron deficiency anemia, unspecified; F41.1 Generalized anxiety disorder; W01.0XXA Fall on same level from slipping, tripping and stumbling without subsequent striking against object, initial encounter; Y93.68 Activity, volleyball (beach) (court); Y92.832 Beach as the place of occurrence of the external cause; Z88.0 Allergy status to penicillin; Z88.2 Allergy status to sulfonamides; Z87.19 Personal history of other diseases of the digestive system
CPT/HCPCS: 97161-GP; 97165-GO; C1713; C1769; G0378; J1100; J1170; J1885; J2060; J2250; J2405; J2704; J3010

== ENCOUNTER → 2017-02-21 | Outpatient (CLI) | payer MEDICAID | LOC: FIMAGING 13:47 | PROVIDERS: ATTEND Orthopaedic Surgery | DX: S52.502D Unspecified fracture of the lower end of left radius, subsequent encounter for closed fracture with routine healing (principal); S52.602D Unspecified fracture of lower end of left ulna, subsequent encounter for closed fracture with routine healing ==

== ENCOUNTER → 2017-02-26 | Outpatient (CLI) | payer MEDICAID | LOC: FIMAGING 14:04 | PROVIDERS: ATTEND Orthopaedic Surgery | DX: S62.92XD Unspecified fracture of left hand, subsequent encounter for fracture with routine healing (principal) ==

== ENCOUNTER → 2017-03-12 | Outpatient (CLI) | payer MEDICAID | LOC: FIMAGING 18:25 | PROVIDERS: ATTEND Orthopaedic Surgery | DX: Z48.89 Encounter for other specified surgical aftercare (principal); S52.502D Unspecified fracture of the lower end of left radius, subsequent encounter for closed fracture with routine healing; S52.602D Unspecified fracture of lower end of left ulna, subsequent encounter for closed fracture with routine healing ==

== ENCOUNTER → 2017-04-10 | Outpatient (CLI) | payer MEDICAID | LOC: BMCIMAGING 15:29 | PROVIDERS: ATTEND Family Medicine | DX: Z12.31 Encounter for screening mammogram for malignant neoplasm of breast (principal); S52.592D Other fractures of lower end of left radius, subsequent encounter for closed fracture with routine healing; S52.692D Other fracture of lower end of left ulna, subsequent encounter for closed fracture with routine healing | CPT/HCPCS: G0202 ==

== ENCOUNTER 2017-04-29 06:31 | Inpatient (IN) | payer MEDICAID ==
--- NOTE | 2017-04-23 17:25 | GHP ---
[f rep st] PREOP HISTORY AND PHYSICAL DATE OF ADMISSION: 04/29/2017 CHIEF COMPLAINT: Follow up femoral hernia. HISTORY OF PRESENT ILLNESS: The patient is a 62-year-old female, last seen in September 2016 for lower a bdominal pain, increased diarrhea from her baseline, accompanied by nausea. She has a history of ank ylosing spondylitis and microscopic colitis with a previously diagnosed left femoral hernia. On phys ical exam, her left femoral hernia was soft and reducible and did not seem to be the cause of her abd ominal pain. She had an abdominal x-ray around that time that showed some constipation. There is so me question as to whether her symptoms were secondary to her colitis. Still, she does have a femoral hernia and requests repair to avoid any kind of urgent or emergent surgery. Risks and options have been fully discussed, including, but not limited to, bleeding, infection, injury to nerve, bladder in jury, bowel injury, recurrent hernia, open surgery and other problems, and she requests to proceed. PAST MEDICAL HISTORY: Includes anemia of chronic illness, ankylosing spondylitis, microscopic coliti s, fibromyalgia, hypothyroidism, idiopathic neuropathy, heart palpitations, patellofemoral syndrome, radiculopathy, iridocyclitis. PAST SURGICAL HISTORY: Includes colonoscopy, EGD, and jaw surgery. MEDICATIONS: [place] Thyroid, acyclovir, gabapentin, Jublia, multivitamin, oxycodone, tretinoin cream . ALLERGIES: Penicillin and sulfa. FAMILY MEDICAL HISTORY: Diabetes. SOCIAL HISTORY: Patient works in sales. She is a former tobacco smoker. She enjoys swimming. EXAM: GENERAL: Reveals an alert female, in no acute distress, thin but well-nourished. HEENT: Nor mocephalic, atraumatic. No jaundice. Mucous membranes moist. CHEST: Clear to auscultation bilater ally. CARDIAC: Regular rate and rhythm. ABDOMEN: Soft, with mild lower abdominal tenderness, no g uarding or rebound, no scars, and a small reducible left femoral hernia. EXTREMITIES: Warm and dry. IMPRESSION: This is a 62-year-old female with a symptomatic, reducible left femoral hernia. PLAN: Plan is to proceed with laparoscopic left femoral hernia repair with mesh, possible bilateral femoral hernia repair. Again, risks and options have been discussed, and she requests to proceed. /[id number]/MODL
[2017-04-29] MEDS ORDERED: LR 1,000 ML IV ONE (06:45)
[2017-04-29] MEDS ORDERED: LIDOCAINE 1% 2 ML INJ ID PRN (06:45)
[2017-04-29] MEDS ORDERED: CLINDAMYCIN 600 MG/DEXTROSE 50 ML IV ONE (07:00)
[2017-04-29] MEDS ORDERED: BUPIVACAINE 0.5% 30 ML SDV ONE (07:20)
--- NOTE | 2017-04-29 07:39 | PDANEPAE ---
ANE History of Present Illness Patient presents for femoral hernia repair ANE Past Medical History - Cardiovascular History Hx Hypertension: No Hx Arrhythmias: No Hx Chest Pain: No Hx Coronary Artery / Peripheral Vascular Disease: No Hx CHF / Valvular Disease: No Hx Palpitations: No - Pulmonary History Hx COPD: No Hx Asthma/Reactive Airway Disease: No Hx Recent Upper Respiratory Infection: No Hx Oxygen in Use at Home: No Hx Sleep Apnea: No Sleep Apnea Screening Result - Last Documented: Negative - Neurologic History Hx Cerebrovascular Accident: No Hx Seizures: Yes Hx Dementia: No Neurologic History Comment: SEIZURES X3 - LAST SEIZURE 5 YEARS AGO - Endocrine History Hx Diabetes: Yes Endocrine History Comment: HYPOTHYROIDISM - Renal History Hx Renal Disorders: No - Liver History Hx Hepatic Disorders: No - Neurological & Psychiatric Hx Hx Neurological and Psychiatric Disorders: Yes Neurological / Psychiatric History Comment: ankylosing spondylitis causes hip and joint pain - Cancer History Hx Cancer: No - Congenital Disorder History Hx Congenital Disorders: No - GI History Hx Gastrointestinal Disorders: Yes Gastrointestinal History Comment: MICROCOLITIS - Other Health History Other Health History: wears glasses - Chronic Pain History Chronic Pain: Yes (JOINT PAIN) - Surgical History Prior Surgeries: 01/31/17 left wrist orif with [place]. bilat cataract surgery. BONE BIOPSY. JAW SURGERY. COLONOSCOPY. EGD ANE Review of Systems Review of Systems: - Exercise capacity METS (RN): 5 METS ANE Patient History - Allergies Allergies/Adverse Reactions: Penicillins Allergy (Mild, Verified 04/28/17 13:31) Rash Sulfa (Sulfonamide Antibiotics) Allergy (Mild, Verified 04/28/17 13:31) Rash - Home Medications Home medications: home medication list seen and reviewed Home Medications: Thyroid,Pork [[place] Thyroid] 01/07/11 [Last Taken 04/29/17 05:00] Herbals/Supplements -Info Only 01/30/17 [Last Taken 04/27/17] Warfarin Sodium 04/28/17 [Last Taken 04/25/17] oxyCODONE IR [Oxycodone Ir (*)] 04/28/17 [Last Taken 04/29/17 06:00] - NPO status NPO Status: no food or drink >8 hours NPO Since - Liquids (Date): 04/29/17 NPO Since - Liquids (Time): 00:30 NPO Since - Solids (Date): 11/07/17 NPO Since - Solids (Time): 00:30 - Anes Hx Anes Hx: no prior problems - Smoking Hx Smoking Status: Former smoker - Family Anes Hx Family Hx Anesthesia Complications: NONE ANE Labs/Vital Signs - Vital Signs Blood Pressure: 102/60 Heart Rate: 66 Respiratory Rate: 16 O2 Sat (%): 93 Height: 158.75 cm Weight: 45.359 kg ANE Physical Exam - Airway Neck exam: FROM Mallampati Score: Class 2 Mouth exam: small mouth opening - Pulmonary Pulmonary: no respiratory distress - Cardiovascular Cardiovascular: regular rate and rhythym - ASA Status ASA Status: III ANE Anesthesia Plan Anesthesia Plan: GA w LMA (RBA discussed)
[2017-04-29] MEDS ORDERED: fentaNYL 100 MCG/2 ML INJ ONE ×2 (07:42→09:21)
[2017-04-29] MEDS ORDERED: PROPOFOL 200 MG/20 ML VIAL ONE (07:43)
[2017-04-29] MEDS ORDERED: LIDOCAINE 2% 5 ML SDV ONE (07:43)
[2017-04-29 07:50] LABS: % IMMATURE GRANULYOCYTES 0.3 % (0.0-1.1); ABSOLUTE IMMATURE GRANULOCYTES 0.02 10^3/uL (0.00-0.10); ADD DIFF? NO; ADD MORPH? NO; ADD SCAN? NO; ATYPICAL LYMPHOCYTE FLAG 10 (0-99); FRAGMENT RBC FLAG 0 (0-99); HEMATOCRIT 33.9 % (38.0-47.0); HEMOGLOBIN 11.4 g/dL (12.6-16.3); LEFT SHIFT FLG 0 (0-99); LIPEMIA HEMOLYSIS FLAG 80 (0-99); MEAN CELL HEMOGLOBIN 29.7 pg (27.9-34.1); MEAN CELL HEMOGLOBIN CONCENTR. 33.6 g/dL (32.4-36.7); MEAN CELL VOLUME 88.3 fL (81.5-99.8); MEAN PLATELET VOLUME 9.6 fL (8.7-11.7); PLATELET CLUMPS FLAG 0 (0-99); PLATELET COUNT 399 10^3/uL (150-400); RED BLOOD CELL COUNT 3.84 10^6/uL (4.18-5.33); RED CELL DISTRIBUTION WIDTH 13.2 % (11.5-15.2)
[2017-04-29 07:59] LABS: INR 1.16 (0.83-1.16); PROTIME(PATIENT) 14.8 SEC (12.0-15.0)
[2017-04-29 08:00] LABS: APTT 32.2 SEC (23.0-38.0)
--- NOTE | 2017-04-29 08:08 | PDHPUP ---
History & Physical Update H&P update statement: This history and physical update is based on an assessment of the patient which was completed after admission or registration (within 24 hours), but prior to the surgery/procedure. H&P update: H&P reviewed & patient examined, no change in patient's condition since H&P completed
[2017-04-29] MEDS ORDERED: ROCURONIUM 50 MG/5 ML VIAL ONE ×2 (08:36→08:40)
[2017-04-29] MEDS ORDERED: ONDANSETRON 4 MG/2 ML VIAL ONE (08:42)
[2017-04-29] MEDS ORDERED: DEXAMETHASONE 4 MG/ML VIAL ONE (08:42)
[2017-04-29] MEDS ORDERED: ONDANSETRON 4 MG/2 ML VIAL IVP PRN ×2 (09:04→09:32)
[2017-04-29] MEDS ORDERED: OXYCODONE/APAP 5/325 TAB PO PRN (09:04)
[2017-04-29] MEDS ORDERED: LR 500 ML IV PRN (09:04)
[2017-04-29] MEDS ORDERED: NALOXONE HCL 0.4 MG/ML INJ IVP PRN (09:04)
--- NOTE | 2017-04-29 09:19 | POSTANESTH ---
Post Anesthetic Evaluation Cardiovascular Status: Similar to Pre-Op Cond Respiratory Status: Similar to Pre-op Cond. Level of Consciousness/Mental Status: Can Participate in Eval Pain Control: Adequate, Prn Tx Ordered Nausea/Vomiting Control: Adequate, Prn Tx Ordered Complications Possibly Related to Anesthesia: None Noted
[2017-04-29] MEDS: fentaNYL 100 MCG/2 ML INJ IVP PRN ×2 (09:23→09:37)
[2017-04-29] MEDS ORDERED: HYDROmorphONE/DILAUDID 1 MG/ML INJ IVP PRN (09:32)
--- NOTE | 2017-04-29 09:35 | POSTOPPROG ---
Post Op Note Date of Operation: 04/29/17 Surgeon: Rick Trammell Digital Photographic Printer: Idalia Finley Anesthesiologist: Morris Modi Anesthesia: GET(General Endotracheal) Pre-op Diagnosis: L femoral hernia Post-op Diagnosis: same Procedure: lap femoral hernia repair c mesh, exploration of R femoral area Findings: left femoral hernia, no right sided hernias Inf/Abcess present in the surg proc area at time of surgery?: No EBL: Minimal Complications: none Specimen(s): none
[2017-04-29] MEDS ORDERED: HYDROmorphONE/DILAUDID 1 MG/ML INJ ONE (09:36)
[2017-04-29] MEDS ORDERED: OXYCODONE/APAP 5/325 TAB ONE (09:43)
[2017-04-29] MEDS: OXYCODONE/APAP 5/325 TAB PO PRN ×3 (13:51→21:35)
[2017-04-29] MEDS: DOCUSATE SODIUM 100 MG CAP PO SCH (20:58)
[2017-04-29] MEDS: SIMETHICONE 80 MG TAB CHEW PO PRN (21:35)
[2017-04-30] MEDS: HYDROmorphone HCL/NS/PF 0.4 MG/2 ML SYR IVP PRN ×3 (00:36→08:40)
[2017-04-30] MEDS: SIMETHICONE 80 MG TAB CHEW PO PRN (00:39)
[2017-04-30] MEDS: OXYCODONE/APAP 5/325 TAB PO PRN ×6 (01:30→22:32)
[2017-04-30] MEDS: DOCUSATE SODIUM 100 MG CAP PO SCH ×3 (08:32→22:33)
[2017-04-30] MEDS: THYROID 60 MG TAB PO SCH (08:32)
[2017-04-30] MEDS: MULTIVITAMINS 1 EACH TAB PO SCH (08:32)
[2017-04-30] MEDS ORDERED: BISACODYL 10 MG SUPP PR ONE (09:20)
[2017-04-30] MEDS ORDERED: POLYETHYLENE GLYCOL 3350 17 GM PKT PO ONE (09:20)
--- NOTE | 2017-04-30 10:00 | SOAPPROG ---
SOAP Progress Note Assessment/Plan: Assessment/Plan: 62 Y F s/p lap femoral hernia repair, POD#1. C/o bloating and pain overnight. Exam within acceptable limits today. Seen with Dr. Trammell. Suspect ileus and constipation. Add miralax and suppository this am. Recent RUE DVT p wrist surgery. Some confusion about her date to stop coumadin. Will get repeat RUE US to evaulate for resolution of clot for decision making. Ppx lovenox today. Dispo: pending. possibly later today versus in am. patient lives alone. Rx percocet in chart. S: had a really bad night. c/o bloating. in more pain than expected. O: up oob. walking around in room. alert, nad mmm, no jaundice ctab rrr abd softly bloated. no guarding. inc cdi. hernia repair intact. +BS. 04/30/17 09:55 Objective: Vital Signs Temp Pulse Resp BP Pulse Ox 37.2 C 62 15 96/58 L 94 04/30/17 08:00 04/30/17 08:00 04/30/17 08:00 04/30/17 08:00 04/30/17 00:00 Laboratory Results 04/29/17 07:40 04/29/17 04/30/17 05/01/17 05:59 05:59 05:59 Intake Total 1720 Output Total 2 Balance 1718 PT 14.8 SEC (12.0-15.0) 04/29/17 07:40 INR 1.16 (0.83-1.16) 04/29/17 07:40 ICD10 Worksheet Patient Problems: Problems Problem Status Onset DVT of upper extremity (deep vein thrombosis) Acute Wrist fracture, left Acute
--- NOTE | 2017-04-30 10:56 | ASMTCMCOM ---
CM Note CM Note Notes: Patient is POD #1 laparoscopic L femoral hernia repair with Dr Trammell. She is c/o of a bad night last night, lots of bloating. Per surgery report, symptoms caused by likely ileus/constipation. Patient is independent at baseline and should not have any discharge needs. CM available if needs change. Date Signed: 04/30/2017 10:55 AM Electronically Signed By:Karuna Reed RN
[2017-04-30] MEDS ORDERED: KETOROLAC 15 MG/1 ML SDV IVP SCH (12:00)
[2017-04-30] MEDS: ASPIRIN 325 MG TAB PO SCH (14:32)
[2017-04-30] MEDS: ENOXAPARIN 30 MG/0.3 ML SYR SC SCH (14:35)
[2017-04-30] MEDS: IBUPROFEN 600 MG TAB PO PRN (17:55)
[2017-05-01] MEDS: OXYCODONE/APAP 5/325 TAB PO PRN ×4 (02:39→14:53)
[2017-05-01] MEDS: THYROID 60 MG TAB PO SCH (06:53)
[2017-05-01 07:34] VITALS: RESP 16
[2017-05-01] MEDS: MULTIVITAMINS 1 EACH TAB PO SCH (08:34)
[2017-05-01] MEDS: ENOXAPARIN 30 MG/0.3 ML SYR SC SCH (08:34)
[2017-05-01] MEDS: DOCUSATE SODIUM 100 MG CAP PO SCH (08:35)
[2017-05-01] MEDS: ASPIRIN 325 MG TAB PO SCH (08:35)
[2017-05-01] MEDS: IBUPROFEN 600 MG TAB PO PRN ×2 (08:35→14:54)
--- NOTE | 2017-05-01 09:36 | SOAPPROG ---
SOAP Progress Note Assessment/Plan: Assessment: SP LAP FEMORAL HERNIA, MULTIPLE COMPLAINTS BUT NO EVIDENCE OF RECURRENCE/ DISTENTION DOWN AFTER LARGE BM ABD SOFT, WOUNDS OK, AFEBRILE ALSO LEFT SUBMAX GLAND ENLARGEMENT Plan:POSSIBLY HOME TODAY 05/01/17 09:22 Objective: Vital Signs Temp Pulse Resp BP Pulse Ox 37.0 C 60 16 116/77 92 05/01/17 07:33 05/01/17 07:33 05/01/17 07:33 05/01/17 07:33 05/01/17 07:33 Laboratory Results 04/29/17 07:40 04/30/17 05/01/17 05/02/17 05:59 05:59 05:59 Intake Total 1720 1200 Output Total 2 Balance 1718 1200 PT 14.8 SEC (12.0-15.0) 04/29/17 07:40 INR 1.16 (0.83-1.16) 04/29/17 07:40 ICD10 Worksheet Patient Problems: Problems Problem Status Onset DVT of upper extremity (deep vein thrombosis) Acute Wrist fracture, left Acute
[2017-05-01 15:40] VITALS: BP 104/63; PULSE 66; TEMP 97.5; O2SAT 95
--- NOTE | 2017-05-02 10:16 | ASDISCHSUM ---
Discharge Information Plan Status:Home with No Needs Medically Cleared to Leave: Discharge Date:05/01/2017 05:35 PM CM D/C Disposition:Home, Routine, Self-Care ADT D/C Disposition:Home, Routine, Self-Care Projected Discharge Date:05/01/2017 05:35 PM Transportation at D/C:Friend Discharge Delay Reason: Follow-Up Date:05/01/2017 05:35 PM Discharge Slot: Final Diagnosis: Placement Information Patient Contact Information Contact Name:JOHNNY Relationship:Friend Address: Work Phone: City: [facility] Phone: State/Zip Code:[place] Email: Financial Information Financial Class: Primary Plan Desc:MEDICA[employer] FIRST [place] Primary Plan Number:[id number] Secondary Plan Desc: Secondary Plan Number: Assessment Information [facility] CM Progress Note CM Note CM Note Notes: Patient is POD #1 laparoscopic L femoral hernia repair with Dr Trammell. She is c/o of a bad night last night, lots of bloating. Per surgery report, symptoms caused by likely ileus/constipation. Patient is independent at baseline and should not have any discharge needs. CM available if needs change. Date Signed: 04/30/2017 10:55 AM Electronically Signed By:Karuna Reed RN Intervention Information
--- NOTE | 2017-05-12 14:41 | GOP ---
[f rep st] OPERATIVE REPORT DATE OF OPERATION: 04/29/2017 SURGEON: Rick Trammell MD ACCOUNT DEVELOPMENT SPECIALIST: EVERT Guillaume PREOPERATIVE DIAGNOSIS: Left femoral hernia. POSTOPERATIVE DIAGNOSIS: Left femoral hernia. PROCEDURE PERFORMED: Laparoscopic left femoral hernia repair and exploration of the right. FINDINGS: The patient was found to have a small left femoral hernia. There was no evidence of indire ct or direct herniations, and no evidence of hernia on the right side. DESCRIPTION OF PROCEDURE: The patient was taken to the operating room where she received satisfactor y general endotracheal anesthesia, placed in supine position, prepped and draped in usual sterile fas hion. Infraumbilical incision was made. Dissection was carried down to the rectus sheath, which was i ncised. A subfascial tunnel was developed in the preperitoneal space, which was dissected free with a balloon dissector. That was replaced with a CO2 insufflation trocar. Two other trocars were placed i n the midline under direct vision. Chuy's ligament was exposed bilaterally. The cords were mobilize d bilaterally. The peritoneum was dissected off the cord structures. There were no indirect sacs. On the left, a femoral hernia was freed up, its contents reduced. A Covidien polyester mesh patch was in troduced and placed over the inguinal floor and secured in place with AbsorbaTack, securing it to Investment Officer per's ligament, the lacunar ligament, anterior abdominal wall, lateral abdominal wall outside the int ernal ring. No evidence of herniation was seen on the right side. Trocars removed under direct vision . Pneumopreperitoneum was released. Trocar sites were closed with 0 Vicryl for the fascia, and 4-0 Mo nocryl subcuticular stitch for the skin. All layers infiltrated with 0.5% Marcaine. The estimated blood loss was negligible. She was taken to the recovery room in good condition. /[id number]/MODL
== END 2017-05-01 17:35 | disposition home or self-care (01) | DRG 352 ==
LOC: F3N 06:31 → F3E 09:57 → OBSVTOIN 04-30 16:25
PROVIDERS: ADMIT Surgery; ATTEND Surgery
PROC: 0YU84JZ Supplement Left Femoral Region with Synthetic Substitute, Percutaneous Endoscopic Approach (ICD-10-PCS; principal; 2017-04-30)
DX: K41.90 Unilateral femoral hernia, without obstruction or gangrene, not specified as recurrent (principal); E03.9 Hypothyroidism, unspecified; K52.9 Noninfective gastroenteritis and colitis, unspecified; E78.5 Hyperlipidemia, unspecified; D63.8 Anemia in other chronic diseases classified elsewhere; Z87.891 Personal history of nicotine dependence; Z86.718 Personal history of other venous thrombosis and embolism
CPT/HCPCS: C1727; C1781; J1100; J1170; J1650; J1885; J2405; J2704; J3010

== ENCOUNTER → 2017-05-06 | Outpatient (CLI) | payer MEDICAID | LOC: FIMAGING 18:08 | PROVIDERS: ATTEND Orthopaedic Surgery | DX: S52.592D Other fractures of lower end of left radius, subsequent encounter for closed fracture with routine healing (principal); S52.692D Other fracture of lower end of left ulna, subsequent encounter for closed fracture with routine healing ==

== ENCOUNTER → 2017-07-09 | Outpatient (CLI) | payer MEDICAID | LOC: BMCIMAGING 15:53 | PROVIDERS: ATTEND Orthopaedic Surgery | DX: S52.592D Other fractures of lower end of left radius, subsequent encounter for closed fracture with routine healing (principal) ==

== ENCOUNTER 2017-07-14 09:25 | Observation (INO) | payer MEDICAID ==
--- NOTE | 2017-07-13 15:24 | GHP ---
[f rep st] PREOP HISTORY AND PHYSICAL DATE OF ADMISSION: 07/14/2017 PREOPERATIVE DIAGNOSIS: Painful retained hardware in left wrist. PLANNED PROCEDURE: Hardware removal left distal radius with flexor tendon tenolysis and scar tissue debridement. PRIOR MEDICAL HISTORY: None. PRIOR SURGICAL HISTORY: Wrist open reduction internal fixation, with acute carpal tunnel release. H istory of DVT. MEDICATIONS: Oxycodone. ALLERGIES: Penicillin. SOCIAL HISTORY: She is self-employed, does not smoke, denied alcohol use. REVIEW OF SYSTEMS: No shortness of breath, chest pain. Otherwise, review of systems unremarkable. PHYSICAL EXAMINATION: GENERAL: A healthy-appearing 62-year-old female. HEENT: Normocephalic, atra umatic. Extraocular muscles intact. NECK: Supple. There is no lymphadenopathy. No JVD. CHEST: Clear to auscultation. CARDIOVASCULAR: Regular rate and rhythm. ABDOMEN: Soft, nontender, nondist ended. EXTREMITIES: Left wrist has a well-healed incision. There is minimal swelling. She only has about 40 degrees of wrist extension, 60 degrees of wrist flexion. Sensation in both the median nerv e to light touch is intact, as well as the radial nerve is intact. 2+ radial pulse. IMAGING STUDIES: X-rays: 3 views of the wrist taken a week ago at [facility] shows sa tisfactory healing of the fracture of both the radius and the ulna. ASSESSMENT: Painful retained hardware with limited range of motion postoperatively from open reducti on internal fixation wrist. PLAN: I recommend removing the volar wrist plate with a flexor tendon tenolysis and debridement of s car tissue try to improve her range of motion and improve her pain. She did have some problems with postoperative pain management after the original surgery, so I do think she will need to at least spe nd overnight in the hospital for pain management. Preoperative paperwork was completed. We will plan on surgery on Friday at the hospital. /[id number]/MODL
[~2017-07-14 09:25] MED LIST: CLINDAMYCIN 900 MG/DEXTROSE 50 ML IV ONE; LIDOCAINE 1% 2 ML INJ ID PRN; LR 1,000 ML IV ONE
[2017-07-14] MEDS ORDERED: CLINDAMYCIN 900 MG/DEXTROSE 50 ML IV ONE (09:30)
--- NOTE | 2017-07-14 09:43 | PDANEPAE ---
ANE History of Present Illness left upper extremity hardware removal ANE Past Medical History - Cardiovascular History Hx Hypertension: No Hx Arrhythmias: No Hx Chest Pain: No Hx Coronary Artery / Peripheral Vascular Disease: No Hx CHF / Valvular Disease: No Hx Palpitations: No - Pulmonary History Hx COPD: No Hx Asthma/Reactive Airway Disease: No Hx Recent Upper Respiratory Infection: No Hx Oxygen in Use at Home: No Hx Sleep Apnea: No Sleep Apnea Screening Result - Last Documented: Negative - Neurologic History Hx Cerebrovascular Accident: No Hx Seizures: Yes Hx Dementia: No Neurologic History Comment: SEIZURES X3 - LAST SEIZURE 5 YEARS AGO - Endocrine History Hx Diabetes: Yes Hypothyroid: Yes Hyperthyroid: No Obesity: no Endocrine History Comment: HYPOTHYROIDISM - Renal History Hx Renal Disorders: No - Liver History Hx Hepatic Disorders: No - Neurological & Psychiatric Hx Hx Neurological and Psychiatric Disorders: Yes Neurological / Psychiatric History Comment: ankylosing spondylitis causes hip and joint pain - Cancer History Hx Cancer: No - Congenital Disorder History Hx Congenital Disorders: No - GI History Hx Gastrointestinal Disorders: Yes Gastrointestinal History Comment: MICROCOLITIS - Other Health History Other Health History: L femoral hernia - Chronic Pain History Chronic Pain: Yes (JOINT PAIN) - Surgical History Prior Surgeries: hand l. hernia. bilat cataract surgery. BONE BIOPSY. JAW SURGERY. COLONOSCOPY. EGD ANE Review of Systems Review of systems is: negative Review of Systems: - Exercise capacity METS (RN): 5 METS ANE Patient History - Allergies Allergies/Adverse Reactions: Penicillins Allergy (Mild, Verified 04/28/17 13:31) Rash Sulfa (Sulfonamide Antibiotics) Allergy (Mild, Verified 04/28/17 13:31) Rash - Home Medications Home medications: home medication list seen and reviewed Home Medications: Herbals/Supplements -Info Only 1 each PO DAILY 01/30/17 [Last Taken 01/30/17] Multivitamins [Multivitamin (*)] 1 each PO DAILY 04/29/17 [Last Taken Unknown] Thyroid [[place] Thyroid 60 MG (*)] 30 mg PO DAILY 04/29/17 [Last Taken 04/29/17 05:00] oxyCODONE IR [Oxycodone Ir (*)] 10 mg PO Q6HRS PRN 04/29/17 [Last Taken 06:00] Acyclovir 06/30/17 [Last Taken Unknown] Gabapentin 06/30/17 [Last Taken Unknown] - Smoking Hx Smoking Status: Former smoker - Family Anes Hx Family Hx Anesthesia Complications: NONE ANE Labs/Vital Signs - Vital Signs Height: 157.48 cm Weight: 45.359 kg ANE Physical Exam - Airway Neck exam: FROM Mallampati Score: Class 2 Mouth exam: small mouth opening - Pulmonary Pulmonary: no respiratory distress - Cardiovascular Cardiovascular: regular rate and rhythym - ASA Status ASA Status: III ANE Anesthesia Plan Anesthesia Plan: GA w LMA
[2017-07-14] MEDS ORDERED: fentaNYL 100 MCG/2 ML INJ ONE ×2 (09:45→11:25)
[2017-07-14] MEDS ORDERED: PROPOFOL 200 MG/20 ML VIAL ONE (09:45)
[2017-07-14] MEDS ORDERED: LIDOCAINE 2% 5 ML SDV ONE (09:46)
[2017-07-14] MEDS ORDERED: BUPIVACAINE/EPI 0.5% 30 ML SDV ONE (09:54)
[2017-07-14] MEDS ORDERED: MIDAZOLAM 2 MG/2 ML VIAL IVP ONE (10:03)
[2017-07-14] MEDS ORDERED: MIDAZOLAM 2 MG/2 ML VIAL ONE (10:03)
[2017-07-14] MEDS ORDERED: KETAMINE 200 MG/20 ML VIAL ONE (10:07)
[2017-07-14] MEDS ORDERED: BUPIVACAINE 0.5% 30 ML SDV ONE (10:28)
[2017-07-14] MEDS ORDERED: ONDANSETRON 4 MG/2 ML VIAL ONE (10:47)
[2017-07-14] MEDS ORDERED: DEXAMETHASONE 4 MG/ML VIAL ONE (10:47)
[2017-07-14] MEDS ORDERED: HYDROCODONE/APAP 5/325 TAB PO PRN (10:48)
[2017-07-14] MEDS ORDERED: ACETAMINOPHEN 500 MG TAB PO PRN (10:48)
[2017-07-14] MEDS ORDERED: ALBUTEROL 3 ML DEYVIAL IH PRN (10:48)
[2017-07-14] MEDS ORDERED: ONDANSETRON 4 MG/2 ML VIAL IVP PRN (10:48)
[2017-07-14] MEDS ORDERED: OXYCODONE/APAP 5/325 TAB PO PRN (10:48)
[2017-07-14] MEDS ORDERED: PROMETHAZINE HCL 25 MG/ML INJ IVP PRN (10:48)
[2017-07-14] MEDS ORDERED: LR 500 ML IV PRN (10:48)
[2017-07-14] MEDS ORDERED: NALOXONE HCL 0.4 MG/ML INJ IVP PRN (10:48)
[2017-07-14] MEDS ORDERED: METOCLOPRAMIDE 10 MG/2 ML VIAL IVP PRN (10:54)
[2017-07-14] MEDS ORDERED: KETOROLAC 30 MG/1 ML SDV ONE (10:58)
[2017-07-14] MEDS: fentaNYL 100 MCG/2 ML INJ IVP PRN ×2 (11:26→11:37)
[2017-07-14] MEDS ORDERED: TEMAZEPAM 15 MG CAP PO PRN (11:27)
--- NOTE | 2017-07-14 11:27 | POSTOPPROG ---
Post Op Note Date of Operation: 07/14/17 Surgeon: Iggy Gross Anesthesia: GET(General Endotracheal) Pre-op Diagnosis: painful retained hardare left wrist Post-op Diagnosis: same Procedure: 1. HW removal 2. flexor tendon tenolysis 3. debridement dip joint index fin Inf/Abcess present in the surg proc area at time of surgery?: No EBL: Minimal Complications: none
[2017-07-14] MEDS ORDERED: LR 1,000 ML IV SCH (11:30)
[2017-07-14] MEDS ORDERED: HYDROmorphONE/DILAUDID 1 MG/ML INJ ONE ×2 (11:40→12:38)
[2017-07-14] MEDS: HYDROmorphONE/DILAUDID 1 MG/ML INJ IVP PRN ×8 (11:49→21:06)
[2017-07-14] MEDS ORDERED: HYDROCODONE/APAP 5/325 TAB ONE (12:17)
--- NOTE | 2017-07-14 12:30 | GOP ---
[f rep st] OPERATIVE REPORT DATE OF OPERATION: 07/14/2017 SURGEON: Iggy Gross MD ANESTHESIA: General. PREOPERATIVE DIAGNOSIS: 1. Painful retained hardware, left wrist. 2. Arthrofibrosis left index finger distal interphalangeal. POSTOPERATIVE DIAGNOSIS: 1. Painful retained hardware, left wrist. 2. Arthrofibrosis left index finger distal interphalangeal joint. PROCEDURE PERFORMED: 1. Hardware removal, left distal radius. 2. Flexor tendon tenolysis with scar tissue debridement. 3. Debridement of distal interphalangeal joint with excision exostosis left finger. FINDINGS: ESTIMATED BLOOD LOSS: Minimal. INDICATIONS: Candi is a patient who underwent open reduction, internal fixation of her left distal r adius and ulna in January 2017. She has had difficulty regaining motion, has pain over the hardware. D ecision was made to proceed with hardware removal, scar tissue debridement and flexor tendon tenolysi s. DESCRIPTION OF PROCEDURE: After appropriate informed consent was obtained, patient taken to the oper ating room, placed supine on the operating table. Time-out was performed. Patient was identified, c orrect site was identified, matched with the radiographs available in the room. She received 900 mg clindamycin due to her penicillin allergy. Following the induction of general endotracheal tube anes thesia, the left upper extremity was prepped and draped in the usual sterile fashion. I exsanguinate d the limb, inflated the tourniquet to 250 mmHg. Using the previous volar incision, soft tissues wer e carefully dissected. She had abundant scar tissue throughout the soft tissue field. The plate was easily identified. The median nerve was retracted toward the radial side of the wrist. Ulnar nerve was protected on the ulnar side. The soft tissue was carefully elevated off the plate. The plate was removed without difficulty. I freed up the scar tissue over the volar wrist capsule as well as on t he flexor tendons. She had good wrist extension to about 75 degrees, flexion to 80 degrees. I irrig ated the wound. The wound was closed with 2-0 Vicryl, and interrupted subcuticular 3-0 Monocryl stit ch. Steri-Strips were applied to the skin. I then made a dorsally based incision over the DIP joint of the index finger. She had exostosis dorsally which appeared to be blocking her motion somewhat a nd I debrided this off, removed some of the posterior capsule in the hopes of gaining her better exte nsion range of motion. The wound was irrigated. The skin was closed with 3-0 nylon. I instilled 3 mL of 0.5% Marcaine plain in a digital block fashion and the other 7 mL around the volar wrist incisi on. Soft sterile dressing was applied. Patient was awakened from anesthesia, taken to the recovery r oom in satisfactory condition. There were no immediate intraoperative complications. TOTAL TOURNIQUET TIME: 35 minutes at 250 mmHg. /[id number]/MODL
[2017-07-14 13:26] VITALS: RESP 16
[2017-07-14] MEDS: KETOROLAC 30 MG/1 ML SDV IVP PRN ×2 (16:30→21:00)
[2017-07-14] MEDS: oxyCODONE IR 5 MG TAB PO PRN ×2 (16:31→20:58)
--- NOTE | 2017-07-14 17:42 | ASMTCMCOM ---
CM Note CM Note Notes: Anticipate dc home independently when medically stable. CM available if needs or changes. Date Signed: 07/14/2017 05:41 PM Electronically Signed By:Marlen Macias RN
[2017-07-14] MEDS: HYDROmorphONE/DILAUDID 2 MG TAB PO PRN ×2 (19:07→22:57)
[2017-07-15] MEDS: oxyCODONE IR 5 MG TAB PO PRN ×2 (01:31→08:32)
[2017-07-15] MEDS: HYDROmorphONE/DILAUDID 1 MG/ML INJ IVP PRN (01:55)
[2017-07-15] MEDS: KETOROLAC 30 MG/1 ML SDV IVP PRN ×2 (03:16→08:31)
[2017-07-15 03:32] VITALS: PULSE 54; TEMP 98.3
[2017-07-15] MEDS: HYDROmorphONE/DILAUDID 2 MG TAB PO PRN (04:37)
--- NOTE | 2017-07-15 08:08 | SOAPPROG ---
SOAP Progress Note Assessment/Plan: Assessment: Plan: 07/15/17 08:07 POD#1 HW removal, excision of scar tissue and flexor tendon tenolysis Try to wean from IV dilaudid today anticipate DC Friday07/15/17 08:07 Subjective: pain is better this am,still requiring IV pain meds Objective: dressing c/d/i minimal swelling in fingers moving wrist well Vital Signs Temp Pulse Resp BP Pulse Ox 36.8 C 54 L 16 107/60 93 07/15/17 03:31 07/15/17 03:31 07/15/17 03:31 07/15/17 03:31 07/15/17 03:31 07/14/17 07/15/17 07/16/17 05:59 05:59 05:59 Intake Total 1800 Output Total 5 Balance 1795 ICD10 Worksheet Patient Problems: Problems Problem Status Onset DVT of upper extremity (deep vein thrombosis) Acute Wrist fracture, left Acute
[2017-07-15 08:26] VITALS: BP 105/66; O2SAT 94
[2017-07-15] MEDS ORDERED: oxyCODONE IR 5 MG TAB PO PRN (08:53)
[2017-07-15] MEDS ORDERED: ACYCLOVIR 400 MG TAB PO PRN (08:53)
[2017-07-15] MEDS ORDERED: Herbals/Supplements -Info Only PO SCH (09:00)
[2017-07-15] MEDS ORDERED: THYROID 60 MG TAB PO SCH (09:00)
[2017-07-15] MEDS ORDERED: GABAPENTIN 100 MG CAP PO SCH (09:00)
[2017-07-15] MEDS ORDERED: MULTIVITAMINS 1 EACH TAB PO SCH (09:00)
--- NOTE | 2017-07-15 10:51 | ASDISCHSUM ---
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 CM available if needs or changes. Date Signed: 07/14/2017 05:41 PM Electronically Signed By:Marlen Macias RN Intervention Information
== END 2017-07-15 13:24 | disposition home or self-care (01) ==
LOC: F3N 09:25
PROVIDERS: ADMIT Orthopaedic Surgery; ATTEND Orthopaedic Surgery
PROC: 0PPN04Z Removal of Internal Fixation Device from Left Carpal, Open Approach (ICD-10-PCS; principal; 2017-07-14 10:15)
PROC: 0LN80ZZ Release Left Hand Tendon, Open Approach (ICD-10-PCS; principal; 2017-07-14 10:15)
DX: T84.193A Other mechanical complication of internal fixation device of bone of left forearm, initial encounter (principal); M24.642 Ankylosis, left hand; Z88.0 Allergy status to penicillin; Z87.891 Personal history of nicotine dependence
CPT/HCPCS: 97165-GO; J1100; J1170; J1885; J2250; J2405; J2704; J3010

== ENCOUNTER → 2017-10-30 | Outpatient (CLI) | payer MEDICAID ==
[~2017-10-30] MED LIST changes: -CLINDAMYCIN 900 MG/DEXTROSE 50 ML IV ONE; +IOPAMIDOL (ISOVUE-300) 100 ML BTL ONE; -LIDOCAINE 1% 2 ML INJ ID PRN; -LR 1,000 ML IV ONE
== END ==
LOC: FIMAGING 14:44
PROVIDERS: ATTEND Otolaryngology
DX: M27.8 Other specified diseases of jaws (principal)
CPT/HCPCS: Q9967

== ENCOUNTER → 2018-03-03 | Outpatient (CLI) | payer MEDICAID | LOC: BMCIMAGING 14:32 | PROVIDERS: ATTEND Obstetrics & Gynecology | DX: Z13.820 Encounter for screening for osteoporosis (principal); M81.0 Age-related osteoporosis without current pathological fracture; Z78.0 Asymptomatic menopausal state ==

== ENCOUNTER → 2018-04-22 | Outpatient (CLI) | payer MEDICAID | LOC: BMCIMAGING 15:10 | PROVIDERS: ATTEND Obstetrics & Gynecology | DX: Z12.31 Encounter for screening mammogram for malignant neoplasm of breast (principal) ==

== ENCOUNTER → 2018-05-01 | Outpatient (CLI) | payer MEDICAID | LOC: BMCIMAGING 14:33 | PROVIDERS: ATTEND Family Medicine | DX: M25.562 Pain in left knee (principal); M25.561 Pain in right knee; M25.462 Effusion, left knee; M25.461 Effusion, right knee ==

== ENCOUNTER → 2018-06-25 | Outpatient (CLI) | payer MEDICAID | LOC: FIMAGING 18:37 | PROVIDERS: ATTEND Psychiatry & Neurology Neurology | DX: M20.12 Hallux valgus (acquired), left foot (principal); M19.072 Primary osteoarthritis, left ankle and foot; G31.84 Mild cognitive impairment of uncertain or unknown etiology | CPT/HCPCS: 82523-90 ==

== ENCOUNTER → 2018-07-13 | Outpatient (CLI) | payer MEDICAID | LOC: BMCIMAGING 07:50 | PROVIDERS: ATTEND Family Medicine | DX: K83.9 Disease of biliary tract, unspecified (principal) ==

== ENCOUNTER → 2018-07-31 | Outpatient (CLI) | payer MEDICAID | LOC: BMCIMAGING 16:36 | PROVIDERS: ATTEND Family Medicine | DX: R07.1 Chest pain on breathing (principal) ==